=== PATIENT | male | born 1980 | race Caucasian/White ===

== ENCOUNTER → 2018-01-22 09:34 | Outpatient (CLI) | payer OTHER, SELFPAY ==
[2018-01-22 10:33] LABS: Hematocrit 48.8 % (41-53); Hemoglobin 17.1 g/dL (13.5-17.5); Mean Corpuscular Hemoglobin 29.8 PG (26-34); Mean Corpuscular Volume 85.2 fL (80-100); Platelet Count 220 X10^3/uL (150-400); Red Blood Cell Count 5.73 X10^6/uL (4.5-5.9); Red Cell Distribution Width 12.4 % (11.6-14.8); White Blood Cell Count 8.7 X10^3/uL (4.5-11.0)
[2018-01-22 10:53] LABS: Alanine Aminotransferase 48 IU/L (21-72); Albumin 4.8 g/dL (3.5-5.0); Albumin Globulin Ratio 1.5 (1.0-2.8); Alkaline Phosphatase 75 U/L (38-126); Aspartate Aminotransferase 25 IU/L (17-59); BUN Creatinine Ratio 14.5 (6-22); Bilirubin Total 2.1 mg/dL (0.2-1.3); Blood Urea Nitrogen 16 mg/dL (9-20); Calcium 9.7 mg/dL (8.4-10.2); Carbon Dioxide 30 mmol/L (22-32); Chloride 101 mmol/L (98-107); Cholesterol 179 mg/dL (140-199); Estimated Glomerular Filt Rate > 60.0 mL/min (>60); Globulin 3.3 g/dL (1.7-4.1); Glucose 113 mg/dL (70-100); HDL Cholesterol 41 mg/dL (40-60); HEMOLYSIS < 15 (0-50); LDL Cholesterol Calculated 117 mg/dL (<100); Potassium 3.9 mmol/L (3.4-5.1); Sodium 144 mmol/L (137-145); Total Protein 8.1 g/dL (6.3-8.2); Triglycerides 105 mg/dL (35-150)
[2018-01-22 11:07] LABS: Add Manual Diff / Slide Review YES
[2018-01-22 11:13] LABS: Neutrophils Absolute Manual 6264 /uL (3000-5900); Total Cells Counted 100
[2018-01-22 11:14] LABS: RBC Morphology Normal Morphology
[2018-01-22 11:25] LABS: Thyroid Stimulating Hormone 1.26 uIU/mL (0.47-4.68)
== END ==
PROVIDERS: PCP Family Medicine; Visit Provider Family Medicine
DX: F32.9 Major depressive disorder, single episode, unspecified (principal)
CPT/HCPCS: 36415; 80053; 80061; 84443; 85025

== ENCOUNTER → 2018-10-09 10:25 | Outpatient (CLI) | payer OTHER, SELFPAY ==
--- NOTE | 2018-10-09 10:46 | DI.CT.S_ITS ---
PROCEDURE: CT ABDOMEN PELVIS W CON INDICATIONS: Suspect Hernia TECHNIQUE: After the administration of oral and intravenous contrast, 5 mm thick sections acquired from the diaphragms to the symphysis. 5 mm thick coronal and sagittal reformats were performed. For radiation dose reduction, the following was used: automated exposure control, adjustment of mA and/or kV according to patient size. COMPARISON: [facility], , ABDOMEN COMPLETE, 10/19/2016, 1:59. FINDINGS: Image quality: Diagnostic. ABDOMEN: Lung bases: Lung bases are clear. Heart size is normal. Solid organs: Liver is normal in size and enhancement. Gallbladder is surgically absent. Biliary system is non-dilated. Pancreas enhances normally. Spleen is mildly enlarged at 13.5 cm in craniocaudal dimension. No focal splenic lesions are evident. No adrenal nodules. Kidneys are normal in size and enhancement, without hydronephrosis. Peritoneum and bowel: Periumbilical subcutaneous thickening is identified with a questionable peripherally enhancing fluid collection that measures up to approximately 1.7 x 1.1 cm (image 52, series 2). Mild adjacent subcutaneous edema is evident. No periumbilical hernia or other ventral hernias are identified. The stomach and duodenum are unremarkable. The small bowel loops are nondilated. The appendix is well-visualized and normal. The colon is grossly unremarkable. No free fluid, loculated fluid collection or free air is evident. Nodes and vessels: No retroperitoneal or mesenteric adenopathy. Aorta and inferior vena cava are normal in caliber. Mild common right iliac artery atherosclerosis is evident. Bones: No acute fractures or suspicious osseous lesions are evident. Mild degenerative changes of the lower lumbar spine are present. PELVIS: Genitourinary: Bladder wall thickness is normal. The prostate does not appear to be enlarged. Miscellaneous: No inguinal hernias or adenopathy. No free fluid or loculated fluid collection is evident. Bones: No suspicious bony lesions. No acute fracture or suspicious osseous lesion is present. There mild degenerative changes of the bilateral hips. IMPRESSION: 1. Small peripherally enhancing fluid collection within the left periumbilical region is of uncertain etiology. Clinical correlation to exclude a focal skin/subcutaneous infection is evident. 2. There is no periumbilical or ventral hernia evident. 3. No bowel obstruction. 4. Mild splenomegaly. 5. Mild right common iliac artery atherosclerotic changes is somewhat unusual for the patient's age. Dictated by: Eric Bell M.D. on 10/09/2018 at 10:42 Approved by: Eric Bell M.D. on 10/09/2018 at 10:46
== END ==
PROVIDERS: PCP Family Medicine; Visit Provider Physician Assistant
DX: R16.1 Splenomegaly, not elsewhere classified (principal)
CPT/HCPCS: 74177; Q9967

== ENCOUNTER → 2018-10-10 10:00 | Outpatient (CLI) | payer OTHER, SELFPAY ==
[2018-10-10 10:47] LABS: Add Manual Diff / Slide Review NO; Basophils Absolute Auto 0 /uL (0-100); Basophils Percent Auto 0.4 % (0-2); Eosinophils Absolute Auto 200 /uL (0-450); Eosinophils Percent Auto 2.5 % (2-4); Hematocrit 45.8 % (41-53); Hemoglobin 16.3 g/dL (13.5-17.5); Lymphocytes Absolute Auto 1800 /uL (1100-4500); Mean Corpuscular HGB Conc 35.7 % (30-36); Mean Corpuscular Hemoglobin 29.9 PG (26-34); Mean Corpuscular Volume 83.8 fL (80-100); Monocytes Absolute Auto 500 /uL (0-900); Monocytes Percent Auto 5.2 % (3-14); Neutrophils Absolute Auto 6600 /uL (1500-7000); Neutrophils Percent Auto 71.9 % (50-75); Platelet Count 203 X10^3/uL (150-400); Red Blood Cell Count 5.47 X10^6/uL (4.5-5.9); Red Cell Distribution Width 12.7 % (11.6-14.8); White Blood Cell Count 9.2 X10^3/uL (4.5-11.0)
[2018-10-10 11:15] LABS: Alanine Aminotransferase 39 IU/L (21-72); Albumin 4.7 g/dL (3.5-5.0); Albumin Globulin Ratio 1.6 (1.0-2.8); Alkaline Phosphatase 91 U/L (38-126); Aspartate Aminotransferase 19 IU/L (17-59); Bilirubin Total 1.9 mg/dL (0.2-1.3); Blood Urea Nitrogen 22 mg/dL (9-20); Calcium 10.2 mg/dL (8.4-10.2); Carbon Dioxide 30 mmol/L (22-32); Chloride 102 mmol/L (98-107); Estimated Glomerular Filt Rate > 60.0 mL/min (>60); Globulin 2.9 g/dL (1.7-4.1); Glucose 99 mg/dL (70-100); HEMOLYSIS < 15 (0-50); Lipase 80 U/L (23-300); Potassium 4.5 mmol/L (3.4-5.1); Sodium 143 mmol/L (137-145); Total Protein 7.6 g/dL (6.3-8.2)
== END ==
PROVIDERS: PCP Family Medicine; Visit Provider Physician Assistant
DX: R10.33 Periumbilical pain (principal)
CPT/HCPCS: 36415; 80053; 83690; 85025

== ENCOUNTER 2019-12-13 14:15 | Emergency (ER) | payer OTHER, SELFPAY ==
[2019-12-13 14:25] VITALS: BP 134/95; PULSE 89; RESP 16; TEMP 37.1; O2SAT 98; BMI 35.7
--- NOTE | 2019-12-13 14:44 | DI.CT.S_ITS ---
PROCEDURE: CT HEAD/BRAIN WO CON INDICATIONS: wakes with vertigo regularly, pins/needles all day TECHNIQUE: Noncontrast 4.5 mm thick angled axial sections acquired from the foramen magnum to the vertex, with coronal and sagittal reformats. For radiation dose reduction, the following was used: automated exposure control, adjustment of mA and/or kV according to patient size. COMPARISON: None. FINDINGS: Image quality: Excellent. CSF spaces: Basal cisterns are patent. No extra-axial fluid collections. Ventricles are normal in size and shape. Brain: No midline shift. No intracranial masses or hemorrhage. Bolanos-white matter interface is normal. Skull and face: Calvarium and visualized facial bones are intact, without suspicious lesions. Sinuses: Visualized sinuses and mastoids are clear. IMPRESSION: No acute intracranial findings. Dictated by: Magda Schaeffer M.D. on 12/13/2019 at 15:14 Approved by: Magda Schaeffer M.D. on 12/13/2019 at 15:16
--- NOTE | 2019-12-13 14:44 | DI.CT.S_ITS ---
PROCEDURE: CT ANGIO HEAD AND NECK INDICATIONS: wakes with vertigo regularly, pins/needles all day TECHNIQUE: Pre-contrast 4.5 mm thick sections acquired from the foramen magnum to the vertex. After the administration of intravenous contrast, 1 mm thick sections acquired from the aortic arch through the [place]. Post-contrast 4.5 mm thick sections then re-acquired from the foramen magnum to the vertex. 3-dimensional jwvbmgm-fizgfypcv-avcdlnfaeo (MIP) and/or volume rendering reformats were acquired of the central intracranial vasculature and neck separately. COMPARISON: None. FINDINGS: Image quality: Excellent. BRAIN: CSF spaces: Ventricles are normal in size and shape. Basal cisterns are patent. No extra-axial fluid collections. Brain: No midline shift. No intracranial bleeds or masses. Bolanos-white matter interface appears intact. Skull and face: Calvarium and facial bones appear intact, without suspicious lesions. Orbits appear normal. Sinuses: Sinuses and mastoids are clear. HEAD CT ANGIOGRAPHY: Anterior circulation: Intracranial internal carotid arteries are normal in size and flow. The flow within the paired anterior cerebral arteries is normal and symmetric. The flow within the middle cerebral arteries is normal and symmetric. The anterior communicating artery is seen. No aneurysms are seen. Posterior circulation: Visualized portions of the vertebral arteries demonstrate normal caliber, and join to form a normal appearing basilar artery. Flow within the posterior cerebral arteries is normal and symmetric. No aneurysms are seen. NECK CT ANGIOGRAPHY: Carotid system: The great vessels demonstrate a conventional anatomy as they arise from the aortic arch. The origins of the common carotid arteries appear patent. The common carotid arteries demonstrate normal caliber and courses. The bifurcation regions are both widely patent. The internal carotid arteries demonstrate normal calibers and courses. Posterior circulation: The origins of the vertebral arteries both appear widely patent. The more superior extracranial portions of both vertebral arteries also demonstrate normal courses and calibers. They join to form a normal appearing basilar artery. Soft tissues: Visualized neck soft tissues demonstrate no suspicious abnormalities. Bones: No suspicious bony lesions. Visualized cervical spine appears normally aligned. IMPRESSION: 1. No stenosis, occlusion, or aneurysm of the vasculature of the head and neck. Any quantitative measurements of stenosis were performed using NASCET criteria. Dictated by: Magda Schaeffer M.D. on 12/13/2019 at 15:32 Approved by: Magda Schaeffer M.D. on 12/13/2019 at 15:36
--- NOTE | 2019-12-13 14:46 | ED.NEUROSD ---
HPI - Neuro Symptoms/Deficit General Chief Complaint: Weakness Stated Complaint: left-sided arm numbness, fatigue, dizziness Time Seen by Provider: 12/13/19 14:23 Source: patient Mode of arrival: Wheelchair Limitations: no limitations History of Present Illness HPI Narrative: This is a 39-year-old male who comes to emergency emergency room with complaint of vertigo that occurs in the middle of the night typically or upon awakening in the middle of the night for several months patient states he also today woke up at about 430 in the morning with his left arm extended in front of him it felt like he had paresthesias or pins and needles. Patient also states that since then that feeling has not resolved he states he has sensation but it just feels different than the other arm. He denies headache, he denies new vision changes, no cough cold or congestion. No new chest pain or shortness of breath today. No GI or urinary symptoms. No loss of bowel or bladder control. No numbness or tingling in his other extremities. He has not had any other new neurologic changes. He did change from citalopram to Paxil for his anxiety and depression which he states is controlled but does cause problems. Also has a lot of anxiety related to his marriage but feels safe at home he states he has had his gallbladder removed, denies any other medical issues. No tobacco, rare alcohol, rare THC. On Anticoagulants: No Related Data Previous Rx's Medication Instructions Recorded paroxetine HCl 20 mg tablet 20 mg PO DAILY #90 tab 08/18/19 Allergies Allergy/AdvReac Type Severity Reaction Status Date / Time amoxicillin [AMOXICILLIN] Allergy Severe throat Verified 11/17/19 10:13 swelling Review of Systems Review of Systems ROS Unobtainable: All systems reviewed & are unremarkable except as noted in HPI and below Patient History Medical History Ankle pain (Chronic ~2004) Foot pain (Chronic ~2004) Surgical History Anesthesia (Resolved) History of cholecystectomy (Resolved ~2017) Social History Smoking Status: Never smoker Smoking Status: Never smoker alcohol intake frequency: 0-2 drinks per day Substance Use Type: does not use Exam Narrative Exam Narrative: GEN: well nourished, well appearing male, alert and oriented x 3, patient appears to be in mild distress. HEENT: Atraumatic, pupils are equal round reactive to light, extraocular movements are intact, nares are clear, TMs are clear with no fluid, there is no conjunctival pallor. Throat is clear without any exudates, erythema, tonsillar enlargement or uvular deviation, no dysarthria, no facial droop. HEART: Regular rate and rhythm without murmur, clicks, rubs. No carotid bruits, pulses are equal in upper and lower extremities LUNGS:Lungs clear to auscultation, no wheezes, rales, crackles, chest moves symmetrically ABD:bowel sounds normal, soft, non-tender, no guarding, rebound, rigidity, no masses noted, no hepatosplenomegaly :No CVA tenderness MSCL: Non-tender, no muscle atrophy, muscles strength 5/5 upper and lower extremities, full range of motion, normal gait NEURO:CN 2-12 intact, sensation normal, reflexes 2/4 upper and lower extremities. finger nose finger test normal, heel rodriguez test normal, romberg normal SKIN: no rash, no erythema or other skin changes. Initial Vital Signs Initial Vital Signs: Vital Signs Temperature 98.8 F 12/13/19 14:25 Pulse Rate 89 12/13/19 14:25 Respiratory Rate 16 12/13/19 14:25 Blood Pressure 134/95 H 12/13/19 14:25 Pulse Oximetry 98 12/13/19 14:25 Scores NIH Stroke Scale Level of Conciousness: Alert, keenly responsive Ask month/age: Answers both questions correctly. Open/close eyes, close hand: Performs both tasks correctly Best gaze horizontal: Normal Visual beckman: No visual loss Facial palsy: Normal symetrical movement Left arm drift: No drift for full 10 sec Right arm drift: No drift for full 10 sec Left leg drift: No drift for full 5 sec Right leg drift: No drift for full 5 sec Limb ataxia: Absent Sensory on face/arms/legs: Normal, no sensory loss Best language: No aphasia, normal Dysarthria: Normal Extinction or inattention: No abnormality Total NIH Stroke scale score: 0 Course Orders Ordered: ED Orders 12/13/19 14:44 CT angio head and neck Stat CT head/brain wo con Stat Urine Drug Screen, Rapid Stat 12/13/19 14:45 Basic Metabolic Panel Stat Complete Blood Count AUTO DIFF Stat Partial Thromboplastin Time Stat Prothrombin Time INR Stat Troponin & CK Cardiac Panel Stat Vital Signs Vital signs: Vital Signs - 8 hr 12/13/19 14:25 12/13/19 16:39 12/13/19 16:40 Temperature 98.8 F Pulse Rate 89 72 69 Respiratory Rate 16 Blood Pressure 134/95 H Pulse Oximetry 98 98 98 12/13/19 16:42 Temperature Pulse Rate 68 Respiratory Rate Blood Pressure 128/60 Pulse Oximetry 97 MDM - Neuro Symptoms/Deficit Lab Data Attestation: I reviewed the patient's lab results. Result diagrams: 12/13/19 14:45 12/13/19 14:45 Labs: Lab Results 12/13/19 12/13/19 12/13/19 Range/Units 14:45 14:45 14:45 WBC 9.0 (4.5-11.0) X10^3/uL RBC 5.91 H (4.5-5.9) X10^6/uL Hgb 17.6 H (13.5-17.5) g/dL Hct 49.6 (41-53) % MCV 83.8 (80-100) fL MCH 29.8 (26-34) PG MCHC 35.6 (30-36) % RDW 12.6 (11.6-14.8) % Plt Count 223 (150-400) X10^3/uL Neut % (Auto) 66.8 (50-75) % Lymph % (Auto) 24.5 L (25-40) % [place] % (Auto) 5.6 (3-14) % Eos % (Auto) 2.3 (2-4) % Baso % (Auto) 0.8 (0-2) % Neut # (Auto) 6000 (2448-2672) /uL Lymph # (Auto) 2200 (7534-4333) /uL [place] # (Auto) 500 (0-900) /uL Eos # (Auto) 200 (0-450) /uL Baso # (Auto) 100 (0-100) /uL PT 11.7 (10.1-12.7) SECONDS INR 1.0 (0.9-1.3) APTT 32 (26.4-36.2) SECONDS Sodium 139 (137-145) mmol/L Potassium 4.0 (3.4-5.1) mmol/L Chloride 102 (98-107) mmol/L Carbon Dioxide 34 H (22-32) mmol/L BUN 14 (9-20) mg/dL Creatinine 0.96 (0.66-1.25) mg/dL Estimated GFR > 60.0 (>60) mL/min BUN/Creatinine Ratio 14.6 (6-22) Glucose 90 (70-100) mg/dL Calcium 10.0 (8.4-10.2) mg/dL Total Creatine Kinase 68 (55-170) U/L CK-MB (CK-2) TNP CK-MB (CK-2) Rel Index TNP Troponin I < 0.012 (0.01-0.034) ng/mL Imaging Data CT scan - head: Radiologist's Impression: [address] [address] [address] Scan Report Signed Patient: Nacho Bronson LMR#: [id number] : 1980Acct:[id number] Age/Sex: 39 / MDate of Service: 12/13/19 Loc: ED Accession Number: [id number] Procedure: CT head/brain wo con Ordering Provider: Gena Sweet D.O. PROCEDURE: CT HEAD/BRAIN WO CON INDICATIONS: wakes with vertigo regularly, pins/needles all day TECHNIQUE: Noncontrast 4.5 mm thick angled axial sections acquired from the foramen magnum to the vertex, with coronal and sagittal reformats. For radiation dose reduction, the following was used: automated exposure control, adjustment of mA and/or kV according to patient size. COMPARISON: None. FINDINGS: Image quality: Excellent. CSF spaces: Basal cisterns are patent. No extra-axial fluid collections. Ventricles are normal in size and shape. Brain: No midline shift. No intracranial masses or hemorrhage. Bolanos-white matter interface is normal. Skull and face: Calvarium and visualized facial bones are intact, without suspicious lesions. Sinuses: Visualized sinuses and mastoids are clear. IMPRESSION: No acute intracranial findings. Dictated by: Magda Schaeffer M.D. on 12/13/2019 at 15:14 Approved by: Magda Schaeffer M.D. on 12/13/2019 at 15:16 CTA head and neck: Radiologist's Impression: [address] [address] [address] Scan Report Signed Patient: Nacho Bronson LMR#: [id number] : 1980Acct:[id number] Age/Sex: 39 / MDate of Service: 12/13/19 Loc: ED Accession Number: [id number] Procedure: CT angio head and neck Ordering Provider: Gena Sweet D.O. PROCEDURE: CT ANGIO HEAD AND NECK INDICATIONS: wakes with vertigo regularly, pins/needles all day TECHNIQUE: Pre-contrast 4.5 mm thick sections acquired from the foramen magnum to the vertex. After the administration of intravenous contrast, 1 mm thick sections acquired from the aortic arch through the [place]. Post-contrast 4.5 mm thick sections then re-acquired from the foramen magnum to the vertex. 3-dimensional cnkirlj-ucaeznngv-mjlypalrta (MIP) and/or volume rendering reformats were acquired of the central intracranial vasculature and neck separately. COMPARISON: None. FINDINGS: Image quality: Excellent. BRAIN: CSF spaces: Ventricles are normal in size and shape. Basal cisterns are patent. No extra-axial fluid collections. Brain: No midline shift. No intracranial bleeds or masses. Bolanos-white matter interface appears intact. Skull and face: Calvarium and facial bones appear intact, without suspicious lesions. Orbits appear normal. Sinuses: Sinuses and mastoids are clear. HEAD CT ANGIOGRAPHY: Anterior circulation: Intracranial internal carotid arteries are normal in size and flow. The flow within the paired anterior cerebral arteries is normal and symmetric. The flow within the middle cerebral arteries is normal and symmetric. The anterior communicating artery is seen. No aneurysms are seen. Posterior circulation: Visualized portions of the vertebral arteries demonstrate normal caliber, and join to form a normal appearing basilar artery. Flow within the posterior cerebral arteries is normal and symmetric. No aneurysms are seen. NECK CT ANGIOGRAPHY: Carotid system: The great vessels demonstrate a conventional anatomy as they arise from the aortic arch. The origins of the common carotid arteries appear patent. The common carotid arteries demonstrate normal caliber and courses. The bifurcation regions are both widely patent. The internal carotid arteries demonstrate normal calibers and courses. Posterior circulation: The origins of the vertebral arteries both appear widely patent. The more superior extracranial portions of both vertebral arteries also demonstrate normal courses and calibers. They join to form a normal appearing basilar artery. Soft tissues: Visualized neck soft tissues demonstrate no suspicious abnormalities. Bones: No suspicious bony lesions. Visualized cervical spine appears normally aligned. IMPRESSION: 1. No stenosis, occlusion, or aneurysm of the vasculature of the head and neck. Any quantitative measurements of stenosis were performed using NASCET criteria. Dictated by: Magda Schaeffer M.D. on 12/13/2019 at 15:32 Approved by: Magda Schaeffer M.D. on 12/13/2019 at 15:36 ECG Data Attestation: I personally reviewed and interpreted this ECG as follows: Prior ECG tracings: not available for review Interpretation: NSR, rate of 81, pr 152, qrs 78, qtc 406. NO ST changes appreciated. MDM Narrative Medical decision making narrative: Patient comes in with intermittent vertigo like symptoms particularly at night, this is been longstanding. Head CT and CT angio showed no acute changes. EKG shows no changes. Major abnormalities but describes his symptoms today. He woke up with his arm extended this morning and states that it has been numb and tingly throughout the day although he has had full movement. NIH is 0 with no other neurologic changes on physical exam. We discussed patient's differential including possibility of 2 separate issues as he has had longstanding vertigo like symptoms in the middle night on with his tingling in his upper extremity which started today. Stroke Core Measures Exclusion Criteria TPA in CVA: Symptom Onset >3 or 4.5 Hours Discharge Plan Departure Patient Disposition: Home Clinical Impression: Arm paresthesia, left Discharge Date/Time: 12/13/19 17:14 Activity Restrictions/Additional Instructions: Follow up with your primary care physician Dr. Mullen in the next week for recheck. You may continue home medications as prescribed. Return to ER for,severe headaches, sudden vision changes, difficulty with speech, loss of sensation or difficulty with movement of extremities, loss of bowel or bladder control, new chest pain, shortness of breath or other new or concerning symptoms. Prescriptions: No Action paroxetine HCl [Paxil] 20 mg tablet 20 mg PO DAILY Qty: 90 RF: 3 Referrals: Oziel Mullen MD [Primary Care Provider] -
[2019-12-13 14:56] LABS: Add Manual Diff / Slide Review NO; Basophils Absolute Auto 100 /uL (0-100); Basophils Percent Auto 0.8 % (0-2); Eosinophils Absolute Auto 200 /uL (0-450); Eosinophils Percent Auto 2.3 % (2-4); Hematocrit 49.6 % (41-53); Hemoglobin 17.6 g/dL (13.5-17.5); Lymphocytes Absolute Auto 2200 /uL (1100-4500); Lymphocytes Percent Auto 24.5 % (25-40); Mean Corpuscular HGB Conc 35.6 % (30-36); Mean Corpuscular Hemoglobin 29.8 PG (26-34); Mean Corpuscular Volume 83.8 fL (80-100); Monocytes Absolute Auto 500 /uL (0-900); Monocytes Percent Auto 5.6 % (3-14); Neutrophils Absolute Auto 6000 /uL (1500-7000); Neutrophils Percent Auto 66.8 % (50-75); Platelet Count 223 X10^3/uL (150-400); Red Blood Cell Count 5.91 X10^6/uL (4.5-5.9); Red Cell Distribution Width 12.6 % (11.6-14.8)
[2019-12-13 15:05] LABS: Prothrombin Time 11.7 SECONDS (10.1-12.7)
[2019-12-13 15:07] LABS: PTT Partial Thromboplastin Tim 32 SECONDS (26.4-36.2)
[2019-12-13 15:09] LABS: BUN Creatinine Ratio 14.6 (6-22); Blood Urea Nitrogen 14 mg/dL (9-20); Carbon Dioxide 34 mmol/L (22-32); Chloride 102 mmol/L (98-107); Creatine Kinase 68 U/L (55-170); Estimated Glomerular Filt Rate > 60.0 mL/min (>60); Glucose 90 mg/dL (70-100); HEMOLYSIS < 15 (0-50); Sodium 139 mmol/L (137-145)
[2019-12-13 15:21] LABS: Troponin I < 0.012 ng/mL (0.01-0.034)
[2019-12-13 16:39] VITALS: PULSE 72; O2SAT 98
[2019-12-13 16:40] VITALS: PULSE 69; O2SAT 98
[2019-12-13 16:42] VITALS: BP 128/60; PULSE 68; O2SAT 97
== END 2019-12-13 17:14 | disposition home or self-care (01) ==
PROVIDERS: Emergency Provider Emergency Medicine; PCP Family Medicine
DX: R20.2 Paresthesia of skin (principal); R42 Dizziness and giddiness
CPT/HCPCS: 36415; 70450; 70496; 70498; 80048; 82550; 84484; 85025; 85610; 85730; 93005; 93010; 99283; 99284; Q9967

== ENCOUNTER → 2019-12-21 11:34 | Outpatient (CLI) | payer OTHER, SELFPAY ==
[2019-12-21 14:49] LABS: TSH w/ Reflex to FT4 2.65 uIU/mL (0.47-4.68)
[2019-12-21 15:07] LABS: Vitamin B12 Reflex MMA if <400 773 pg/mL (239-931)
== END ==
PROVIDERS: PCP Family Medicine; Referring Provider Family Medicine; Visit Provider Family Medicine
DX: R20.2 Paresthesia of skin (principal)
CPT/HCPCS: 36415; 82607; 84443

== ENCOUNTER → 2020-01-04 08:43 | Outpatient (CLI) | payer OTHER, SELFPAY ==
[2020-01-04 11:13] LABS: COVID19 -Nasal RAPID Negative (Negative)
== END ==
PROVIDERS: PCP Family Medicine; Visit Provider Physician Assistant
DX: Z11.59 Encounter for screening for other viral diseases (principal)
CPT/HCPCS: 87635

== ENCOUNTER → 2020-01-04 09:46 | Outpatient (CLI) | payer OTHER, SELFPAY ==
--- NOTE | 2020-01-22 15:51 | P.HOLT.S_ITS ---
Senior Telecommunications Technician Report Referral & Results Date Patient Seen: 01/04/20 Requesting provider: Michael Skinner Indication: Syncope Duration of monitoring (days): 3 Diary information: There were 3 patient triggered events, all associated with sinus rhythm only. There were no patient diary entries Data: Minimum heart rate identified was 51 beats per minute at 02:42 on 01/07/2020 Maximum heart rate was 163 beats per minute at 09:11 on 01/06/2020 Less than 1% of identified beats were supraventricular ectopic in origin No ventricular ectopic beats were identified on this study No pauses were identified Impression: Normal 3 day ekg monitor tech.
== END ==
PROVIDERS: PCP Family Medicine; Referring Provider Family Medicine; Visit Provider Family Medicine
DX: R55 Syncope and collapse (principal)
CPT/HCPCS: 0296T; 0298T

== ENCOUNTER → 2020-01-06 07:49 | Outpatient (CLI) | payer OTHER, SELFPAY ==
--- NOTE | 2020-01-06 09:23 | PM.TREADMILL ---
Cardiac Stress Test Report Referral & Results Date Patient Seen: 01/06/20 Time Patient Seen: 09:00 Requesting provider: Michael Skinner Indication: Syncope Rest ECG: Normal sinus rhythm Procedure Note: Today following both written and verbal informed consent, the patient was exercised according to a standard [facility] protocol. The patient exercised for a total of 9 minutes achieving a maximum heart rate of 166. Patient's maximum systolic blood pressure was 160. This was an estimated 10.1 METs. Normal hemodynamic response to exercise. No change in rhythm. No ST changes. Significant impairment of exercise tolerance (FA I +25% on active scale). No signs or symptoms of angina. Presenting presyncope not reproduced on exercise. Impression: low to intermediate probability for ischemia. May be simply cardiac deconditioning. Consider graded exercise program with further ischemia workup reserved for failure to improve with conservative management. Please note: Actual ECG tracings can be found in the PACS system.
== END ==
LOC: DI 07:50
PROVIDERS: PCP Family Medicine; Referring Provider Family Medicine; Visit Provider Family Medicine
DX: R55 Syncope and collapse (principal)
CPT/HCPCS: 93016; 93017; 93018

== ENCOUNTER → 2020-03-23 11:48 | Outpatient (CLI) | payer OTHER, SELFPAY ==
[2020-03-23 13:04] LABS: COVID19 -Nasal RAPID Negative (Negative)
== END ==
PROVIDERS: PCP Family Medicine; Visit Provider Family Medicine Sleep Medicine
DX: Z20.822 Contact with and (suspected) exposure to COVID-19 (principal)
CPT/HCPCS: 87635; C9803

== ENCOUNTER → 2020-04-22 08:59 | Outpatient (CLI) | payer OTHER, SELFPAY ==
[2020-04-22 10:08] LABS: COVID19 -Nasal RAPID Negative (Negative)
== END ==
PROVIDERS: PCP Family Medicine; Visit Provider Family Medicine Sleep Medicine
DX: Z20.822 Contact with and (suspected) exposure to COVID-19 (principal); G47.33 Obstructive sleep apnea (adult) (pediatric)
CPT/HCPCS: 87635; 95811

== ENCOUNTER 2020-05-08 09:11 | Emergency (ER) | payer OTHER, SELFPAY ==
[2020-05-08 09:16] VITALS: BP 155/81; PULSE 102; O2SAT 95
[2020-05-08 09:20] VITALS: BP 155/81; PULSE 96; RESP 18; TEMP 36.7; O2SAT 97; BMI 37.3
--- NOTE | 2020-05-08 09:26 | DI.RAD.S_ITS ---
PROCEDURE: XR CHEST 1V INDICATIONS: chest pain TECHNIQUE: One view of the chest was acquired. COMPARISON: [facility], CT, CT ANGIO HEAD AND NECK, 12/13/2019, 14:57. FINDINGS: Surgical changes and devices: None. Lungs and pleura: Lungs are clear. No pleural effusions or pneumothorax. Mediastinum: Mediastinal contours appear normal. Heart size is normal. Bones and chest wall: No suspicious bony lesions. Overlying soft tissues appear unremarkable. IMPRESSION: No acute cardiopulmonary abnormality. Dictated by: Hernán Yun M.D. on 05/08/2020 at 9:21 Approved by: Hernán Yun M.D. on 05/08/2020 at 9:22
[2020-05-08 09:30] VITALS: PULSE 88; RESP 22; O2SAT 95
[2020-05-08 09:35] LABS: Prothrombin Time 11.1 SECONDS (10.1-12.7)
[2020-05-08 09:37] LABS: Add Manual Diff / Slide Review NO; Basophils Absolute Auto 100 /uL (0-100); Basophils Percent Auto 0.8 % (0-2); Eosinophils Absolute Auto 300 /uL (0-450); Eosinophils Percent Auto 2.7 % (2-4); Hematocrit 49.8 % (41-53); Hemoglobin 17.5 g/dL (13.5-17.5); Lymphocytes Absolute Auto 2300 /uL (1100-4500); Lymphocytes Percent Auto 21.6 % (25-40); Mean Corpuscular HGB Conc 35.2 % (30-36); Mean Corpuscular Volume 85.1 fL (80-100); Monocytes Absolute Auto 500 /uL (0-900); Monocytes Percent Auto 5.1 % (3-14); Neutrophils Absolute Auto 7400 /uL (1500-7000); Neutrophils Percent Auto 69.8 % (50-75); Platelet Count 243 X10^3/uL (150-400); Red Blood Cell Count 5.86 X10^6/uL (4.5-5.9); Red Cell Distribution Width 12.9 % (11.6-14.8); White Blood Cell Count 10.6 X10^3/uL (4.5-11.0)
[2020-05-08 09:38] LABS: PTT Partial Thromboplastin Tim 31 SECONDS (26.4-36.2)
[2020-05-08 09:39] LABS: Alanine Aminotransferase 62 IU/L (<50); Albumin Globulin Ratio 1.4 (1.0-2.8); Alkaline Phosphatase 111 U/L (38-126); Aspartate Aminotransferase 30 IU/L (17-59); BUN Creatinine Ratio 20.6 (6-22); Bilirubin Total 0.9 mg/dL (0.2-1.3); Blood Urea Nitrogen 22 mg/dL (9-20); Calcium 10.2 mg/dL (8.4-10.2); Carbon Dioxide 26 mmol/L (22-32); Chloride 103 mmol/L (98-107); Creatine Kinase 43 U/L (55-170); Estimated Glomerular Filt Rate > 60.0 mL/min (>60); Globulin 3.5 g/dL (1.7-4.1); Glucose 147 mg/dL (70-100); HEMOLYSIS 23 (0-50); Lipase 135 U/L (23-300); Potassium 4.3 mmol/L (3.4-5.1); Sodium 141 mmol/L (137-145); Total Protein 8.5 g/dL (6.3-8.2)
--- NOTE | 2020-05-08 09:43 | ED.SYNCOPE ---
HPI - Syncope General Chief Complaint: Syncope Stated Complaint: passed out in shower Time Seen by Provider: 05/08/20 09:16 Source: patient Mode of arrival: Ambulatory Limitations: no limitations History of Present Illness HPI narrative: Patient is a 40-year-old male with history of dizziness and syncope presenting today after syncopal episode in the shower. He says that he has been worked up with his primary care provider at looks as though he had a Holter monitor in January, head CT and CT angio in November we have he had a previous syncopal episode. He says that he feels dizzy off and on. Initially treated for benign paroxysmal positional vertigo with the Chari maneuver. He does not feel dizzy all the time but he has occasionally. Today when he passed out in the shower he had no warning sign he fully briefly fell to the floor significant other found him immediately. He has no weakness numbness or tingling he does have a slight bruise on his right cheek. He continues to have mild headache. No nausea vomiting no visual changes. He occasionally hears a whooshing sound in his ears. MD complaint: collapsed Prodromal symptoms: none Witnessed: no Related Data Previous Rx's Medication Instructions Recorded meclizine 12.5 mg tablet 12.5 mg PO TID PRN #30 tab 12/21/19 escitalopram oxalate 20 mg tablet 20 mg PO DAILY #60 tab 03/10/20 eszopiclone 2 mg tablet 2 mg PO BEDTIME #1 tab 04/01/20 Allergies Allergy/AdvReac Type Severity Reaction Status Date / Time amoxicillin [AMOXICILLIN] Allergy Severe throat Verified 05/05/20 16:02 swelling Review of Systems Review of Systems ROS Unobtainable: All systems reviewed & are unremarkable except as noted in HPI and below Constitutional Constitutional: Denies chills, Denies fever(s), Reports headache(s), Denies lethargy and Denies weakness Eyes Eyes: Denies loss of vision ENT Ears, Nose, Mouth, and Throat: Denies vertigo and Reports headache(s) Cardiovascular Cardiovascular: Reports as per HPI, Reports syncope, Denies edema, Denies irregular heart rhythm, Denies leg edema and Denies lightheadedness Musculoskeletal Musculoskeletal: Denies back pain, Denies myalgias and Denies numbness Integumentary/Breasts Skin/Breast: Denies pruritus, Denies erythema, Denies rash and Denies wounds Neurologic Neurologic: Reports as per HPI, Denies burning sensations, Denies confusion, Denies vertigo, Reports syncope, Reports headache(s), Denies loss of vision, Denies memory loss, Denies numbness and Denies weakness Psychiatric Psychiatric: Denies confusion and Denies memory loss Patient History Medical History Ankle pain (~2004) Excessive daytime sleepiness Foot pain (~2004) Insomnia, psychophysiological Obesity (BMI 30-39.9) Obstructive sleep apnea, adult Snoring Vertigo Surgical History Anesthesia History of cholecystectomy (~2017) Family History Mother Loud snoring Depression Anxiety Family/Other Loud snoring Depression Anxiety Social History Smoking Status: Never smoker Smoking Status: Never smoker alcohol intake frequency: 0-2 drinks per day Substance Use Type: does not use Exam Initial Vital Signs Initial Vital Signs: Vital Signs Pulse Rate 102 H 05/08/20 09:16 Blood Pressure 155/81 H 05/08/20 09:16 Pulse Oximetry 95 05/08/20 09:16 GENERAL: Well-appearing, well-nourished and in no acute distress. HEENT: Head atraumatic,EOMI, pupils reactive, face symmetric, moist mucous membranes CARDIOVASCULAR: Regular rate and rhythm without murmurs, rubs or gallops. RESPIRATORY: Breath sounds equal bilaterally, no wheezes rales or rhonchi. ABDOMEN: Soft, nontender. Normoactive bowel sounds all 4 quadrants. No guarding or rebound. EXTREMITIES: Normal range of motion, no clubbing or edema. Neurovascularly intact NEUROLOGICAL: Alert and oriented x4.Normal gait and speech. Cranial nerves II through XII grossly intact. Good [id number], good [id number], strength equal bilaterally, no dysarthria or aphasia, sensation in tact to soft touch bilaterally, no visual changes, no facial droop SKIN: Warm, dry, no laceration, no petechiae, no rashes or lesions. Scores NIH Stroke Scale Level of Conciousness: Alert, keenly responsive Ask month/age: Answers both questions correctly. Open/close eyes, close hand: Performs both tasks correctly Best gaze horizontal: Normal Visual beckman: No visual loss Facial palsy: Normal symetrical movement Left arm drift: No drift for full 10 sec Right arm drift: No drift for full 10 sec Left leg drift: No drift for full 5 sec Right leg drift: No drift for full 5 sec Limb ataxia: Absent Sensory on face/arms/legs: Normal, no sensory loss Best language: No aphasia, normal Dysarthria: Normal Extinction or inattention: No abnormality Total NIH Stroke scale score: 0 Course Orders Ordered: ED Orders 05/08/20 09:20 Complete Blood Count AUTO DIFF Stat Comprehensive Metabolic Panel Stat D Dimer Stat Lipase Stat Partial Thromboplastin Time Stat Prothrombin Time INR Stat Troponin & CK Cardiac Panel Stat 05/08/20 09:26 XR chest 1V Stat EKG-12 Lead Stat 05/08/20 09:43 CT head/brain wo con Stat Vital Signs Vital signs: Vital Signs - 8 hr 05/08/20 09:16 05/08/20 09:20 05/08/20 09:30 Temperature 98.0 F Pulse Rate 102 H 96 H 88 Respiratory Rate 18 22 Blood Pressure 155/81 H 155/81 H Pulse Oximetry 95 97 95 05/08/20 10:00 05/08/20 10:30 05/08/20 10:47 Temperature Pulse Rate 80 77 84 Respiratory Rate 19 18 16 Blood Pressure 148/78 H Pulse Oximetry 92 94 97 MDM - Syncope Lab Data Attestation: I reviewed the patient's lab results. Result diagrams: 05/08/20 09:20 05/08/20 09:20 Labs: Lab Results 05/08/20 05/08/20 05/08/20 Range/Units 09:20 09:20 09:20 WBC 10.6 (4.5-11.0) X10^3/uL RBC 5.86 (4.5-5.9) X10^6/uL Hgb 17.5 (13.5-17.5) g/dL Hct 49.8 (41-53) % MCV 85.1 (80-100) fL MCH 30.0 (26-34) PG MCHC 35.2 (30-36) % RDW 12.9 (11.6-14.8) % Plt Count 243 (150-400) X10^3/uL Neut % (Auto) 69.8 (50-75) % Lymph % (Auto) 21.6 L (25-40) % Camp % (Auto) 5.1 (3-14) % Eos % (Auto) 2.7 (2-4) % Baso % (Auto) 0.8 (0-2) % Neut # (Auto) 7400 H (6863-6691) /uL Lymph # (Auto) 2300 (3397-1195) /uL [place] # (Auto) 500 (0-900) /uL Eos # (Auto) 300 (0-450) /uL Baso # (Auto) 100 (0-100) /uL PT 11.1 (10.1-12.7) SECONDS INR 1.0 (0.9-1.3) APTT 31 (26.4-36.2) SECONDS D-Dimer (<230) ng/mL Sodium 141 (137-145) mmol/L Potassium 4.3 (3.4-5.1) mmol/L Chloride 103 (98-107) mmol/L Carbon Dioxide 26 (22-32) mmol/L BUN 22 H (9-20) mg/dL Creatinine 1.07 (0.66-1.25) mg/dL Estimated GFR > 60.0 (>60) mL/min BUN/Creatinine Ratio 20.6 (6-22) Glucose 147 H (70-100) mg/dL Calcium 10.2 (8.4-10.2) mg/dL Total Bilirubin 0.9 (0.2-1.3) mg/dL AST 30 (17-59) IU/L ALT 62 H (<50) IU/L Alkaline Phosphatase 111 (38-126) U/L Total Creatine Kinase 43 L (55-170) U/L CK-MB (CK-2) TNP CK-MB (CK-2) Rel Index TNP Troponin I < 0.012 (0.01-0.034) ng/mL Total Protein 8.5 H (6.3-8.2) g/dL Albumin 5.0 (3.5-5.0) g/dL Globulin 3.5 (1.7-4.1) g/dL Albumin/Globulin Ratio 1.4 (1.0-2.8) Lipase 135 (23-300) U/L 05/08/20 Range/Units 09:20 WBC (4.5-11.0) X10^3/uL RBC (4.5-5.9) X10^6/uL Hgb (13.5-17.5) g/dL Hct (41-53) % MCV (80-100) fL MCH (26-34) PG MCHC (30-36) % RDW (11.6-14.8) % Plt Count (150-400) X10^3/uL Neut % (Auto) (50-75) % Lymph % (Auto) (25-40) % [place] % (Auto) (3-14) % Eos % (Auto) (2-4) % Baso % (Auto) (0-2) % Neut # (Auto) (1605-5690) /uL Lymph # (Auto) (3594-5875) /uL [place] # (Auto) (0-900) /uL Eos # (Auto) (0-450) /uL Baso # (Auto) (0-100) /uL PT (10.1-12.7) SECONDS INR (0.9-1.3) APTT (26.4-36.2) SECONDS D-Dimer < 200 (<230) ng/mL Sodium (137-145) mmol/L Potassium (3.4-5.1) mmol/L Chloride (98-107) mmol/L Carbon Dioxide (22-32) mmol/L BUN (9-20) mg/dL Creatinine (0.66-1.25) mg/dL Estimated GFR (>60) mL/min BUN/Creatinine Ratio (6-22) Glucose (70-100) mg/dL Calcium (8.4-10.2) mg/dL Total Bilirubin (0.2-1.3) mg/dL AST (17-59) IU/L ALT (<50) IU/L Alkaline Phosphatase (38-126) U/L Total Creatine Kinase (55-170) U/L CK-MB (CK-2) CK-MB (CK-2) Rel Index Troponin I (0.01-0.034) ng/mL Total Protein (6.3-8.2) g/dL Albumin (3.5-5.0) g/dL Globulin (1.7-4.1) g/dL Albumin/Globulin Ratio (1.0-2.8) Lipase (23-300) U/L Imaging Data CT scan - head: Radiologist's Impression: PROCEDURE: CT HEAD/BRAIN WO CON INDICATIONS: syncope with headache TECHNIQUE: Noncontrast 4.5 mm thick angled axial sections acquired from the foramen magnum to the vertex, with coronal and sagittal reformats. For radiation dose reduction, the following was used: automated exposure control, adjustment of mA and/or kV according to patient size. COMPARISON: [facility], CT, CT HEAD/BRAIN WO CON, 12/13/2019, 14:57. FINDINGS: Image quality: Excellent. CSF spaces: Basal cisterns are patent. No extra-axial fluid collections. Ventricles are normal in size and shape. Brain: No midline shift. No intracranial masses or hemorrhage. Bolanos-white matter interface is normal. Skull and face: Calvarium and visualized facial bones are intact, without suspicious lesions. Sinuses: Visualized sinuses and mastoids are clear. IMPRESSION: No acute intracranial abnormality. Dictated by: Hernán Yun M.D. on 05/08/2020 at 9:18 Chest x-ray: Radiologist's Impression: PROCEDURE: XR CHEST 1V INDICATIONS: chest pain TECHNIQUE: One view of the chest was acquired. COMPARISON: [facility], CT, CT ANGIO HEAD AND NECK, 12/13/2019, 14:57. FINDINGS: Surgical changes and devices: None. Lungs and pleura: Lungs are clear. No pleural effusions or pneumothorax. Mediastinum: Mediastinal contours appear normal. Heart size is normal. Bones and chest wall: No suspicious bony lesions. Overlying soft tissues appear unremarkable. IMPRESSION: No acute cardiopulmonary abnormality. Dictated by: Hernán Yun M.D. on 05/08/2020 at 9:21 ECG Data Attestation: I personally reviewed and interpreted this ECG as follows: Prior ECG tracings: available for review Interpretation: Normal sinus rhythm rate 80 p.r. interval 162 QRS 82 QTC [address] changes MDM Narrative Medical decision making narrative: Patient has had almost complete outpatient workup including CT angio his head and neck in November echocardiogram, Holter monitor. At this time it sounds as though he has dizzy episodes lasting a minute or less no neurologic deficits. Today he had a syncopal episode without warning she is concerning. He has a consultation with Neurology and couple of weeks. D-dimer is negative likely to be. At this time I do not think [place] repeating CT angio. Discussed all results with him and warning signs and when to return to ED. Discharge Plan Departure Patient Disposition: Home Clinical Impression: Syncope Qualifiers: Syncope type: unspecified Qualified Code(s): R55 - Syncope and collapse Instructions: DI for Syncope in Adults (Fainting) Activity Restrictions/Additional Instructions: *You have been diagnosed with dizziness *What to do: Recommended follow-up with Neurology as scheduled. At this time blood work and CT scan are reassuring. Recommend increasing fluid intake eating frequent meals *Continue to take medications as directed *Follow up with your primary care provider in 2-3 days *Return to ER if you should have persistent dizziness, recurrent passing out or any new, worsening or concerning symptoms Prescriptions: No Action meclizine 12.5 mg tablet 12.5 mg PO TID PRN (Reason: dizziness) Qty: 30 RF: 0 escitalopram oxalate [Lexapro] 20 mg tablet 20 mg PO DAILY Qty: 60 RF: 0 eszopiclone 2 mg tablet 2 mg PO BEDTIME Qty: 1 RF: 0 Referrals: Michael Skinner MD [Primary Care Provider] - Stand Alone Forms: Work Release Note
[2020-05-08 09:51] LABS: Troponin I < 0.012 ng/mL (0.01-0.034)
[2020-05-08 09:58] LABS: D Dimer < 200 ng/mL (<230)
[2020-05-08 10:00] VITALS: PULSE 80; RESP 19; O2SAT 92
[2020-05-08 10:30] VITALS: PULSE 77; RESP 18; O2SAT 94
[2020-05-08 10:47] VITALS: BP 148/78; PULSE 84; RESP 16; O2SAT 97
== END 2020-05-08 10:48 | disposition home or self-care (01) ==
PROVIDERS: Emergency Provider Emergency Medicine; PCP Family Medicine
DX: R55 Syncope and collapse (principal); R42 Dizziness and giddiness; R07.9 Chest pain, unspecified
CPT/HCPCS: 36415; 70450; 71045; 80053; 82550; 83690; 84484; 85025; 85379; 85610; 85730; 93005; 93010; 99284

== ENCOUNTER → 2020-08-08 11:35 | Outpatient (CLI) | payer OTHER, SELFPAY ==
[2020-08-08 11:58] LABS: Bacteria Urine None Seen; RBC Urine None Seen (0-5/HPF)
[2020-08-08 12:55] LABS: Appearance Urine UA CLEAR; Bilirubin Urine UA NEGATIVE (NEGATIVE); Color Urine UA YELLOW; Glucose Urine UA NEGATIVE (Negative); Ketones Urine UA NEGATIVE (NEGATIVE); Leukocyte Esterase Urine UA NEGATIVE (NEGATIVE); Nitrite Urine UA NEGATIVE (Negative); Occult Blood Urine UA NEGATIVE (Negative); Protein Urine UA NEGATIVE (Negative); Specific Gravity Urine UA 1.025 (1.000-1.035); pH Urine UA 5.5 (4.5-8.0)
[2020-08-08 13:02] LABS: Add Manual Diff / Slide Review NO; Basophils Absolute Auto 0 /uL (0-100); Basophils Percent Auto 0.3 % (0-2); Eosinophils Absolute Auto 200 /uL (0-450); Eosinophils Percent Auto 1.8 % (2-4); Hematocrit 47.5 % (41-53); Hemoglobin 16.7 g/dL (13.5-17.5); Lymphocytes Absolute Auto 2200 /uL (1100-4500); Lymphocytes Percent Auto 21.9 % (25-40); Mean Corpuscular HGB Conc 35.2 % (30-36); Mean Corpuscular Hemoglobin 29.5 PG (26-34); Monocytes Absolute Auto 600 /uL (0-900); Monocytes Percent Auto 5.9 % (3-14); Neutrophils Absolute Auto 6900 /uL (1500-7000); Neutrophils Percent Auto 70.1 % (50-75); Platelet Count 215 X10^3/uL (150-400); Red Blood Cell Count 5.65 X10^6/uL (4.5-5.9); Red Cell Distribution Width 12.8 % (11.6-14.8); White Blood Cell Count 9.9 X10^3/uL (4.5-11.0)
[2020-08-08 13:07] LABS: Alanine Aminotransferase 62 IU/L (<50); Albumin 4.7 g/dL (3.5-5.0); Albumin Globulin Ratio 1.4 (1.0-2.8); Alkaline Phosphatase 86 U/L (38-126); Aspartate Aminotransferase 29 IU/L (17-59); BUN Creatinine Ratio 15.3 (6-22); Blood Urea Nitrogen 17 mg/dL (9-20); Calcium 9.8 mg/dL (8.4-10.2); Carbon Dioxide 30 mmol/L (22-32); Chloride 101 mmol/L (98-107); Estimated Glomerular Filt Rate > 60.0 mL/min (>60); Globulin 3.3 g/dL (1.7-4.1); Glucose 106 mg/dL (70-100); HEMOLYSIS < 15 (0-50); Potassium 4.2 mmol/L (3.4-5.1); Sodium 140 mmol/L (137-145)
[2020-08-08 13:15] LABS: Culture Indicated Urine Cult Not Indicated; WBC Urine 0-1/HPF (0-5/HPF)
== END ==
PROVIDERS: PCP Family Medicine; Referring Provider Physician Assistant; Visit Provider Physician Assistant
DX: D23.9 Other benign neoplasm of skin, unspecified (principal)
CPT/HCPCS: 36415; 80053; 81001; 81405; 85025

== ENCOUNTER 2020-09-16 15:00 | Emergency (ER) | payer OTHER, SELFPAY ==
[2020-09-16 15:27] VITALS: BP 150/99; PULSE 96; RESP 16; TEMP 36.6; O2SAT 97; BMI 37.3
[2020-09-16 15:46] LABS: Add Manual Diff / Slide Review NO; Basophils Absolute Auto 100 /uL (0-100); Basophils Percent Auto 0.8 % (0-2); Eosinophils Absolute Auto 100 /uL (0-450); Eosinophils Percent Auto 1.4 % (2-4); Hematocrit 47.6 % (41-53); Hemoglobin 16.4 g/dL (13.5-17.5); Lymphocytes Absolute Auto 2300 /uL (1100-4500); Lymphocytes Percent Auto 21.8 % (25-40); Mean Corpuscular HGB Conc 34.4 % (30-36); Mean Corpuscular Hemoglobin 29.1 PG (26-34); Mean Corpuscular Volume 84.5 fL (80-100); Monocytes Absolute Auto 500 /uL (0-900); Monocytes Percent Auto 5.1 % (3-14); Neutrophils Absolute Auto 7400 /uL (1500-7000); Neutrophils Percent Auto 70.9 % (50-75); Platelet Count 226 X10^3/uL (150-400); Red Blood Cell Count 5.64 X10^6/uL (4.5-5.9); Red Cell Distribution Width 12.9 % (11.6-14.8); White Blood Cell Count 10.4 X10^3/uL (4.5-11.0)
[2020-09-16 15:58] LABS: Acetaminophen < 10 ug/mL (10-30); Alanine Aminotransferase 46 IU/L (<50); Albumin 4.8 g/dL (3.5-5.0); Albumin Globulin Ratio 1.4 (1.0-2.8); Alkaline Phosphatase 79 U/L (38-126); Aspartate Aminotransferase 32 IU/L (17-59); Blood Urea Nitrogen 16 mg/dL (9-20); Calcium 9.9 mg/dL (8.4-10.2); Carbon Dioxide 28 mmol/L (22-32); Chloride 105 mmol/L (98-107); Estimated Glomerular Filt Rate > 60.0 mL/min (>60); Ethanol (ETOH) < 10 mg/dL; Globulin 3.4 g/dL (1.7-4.1); Glucose 114 mg/dL (70-100); HEMOLYSIS < 15 (0-50); Potassium 3.9 mmol/L (3.4-5.1); Salicylate < 1.0 mg/dL (<20); Sodium 141 mmol/L (137-145); Total Protein 8.2 g/dL (6.3-8.2)
[2020-09-16 16:03] LABS: COVID19 -Nasal RAPID Negative (Negative)
[2020-09-16 16:46] LABS: Free T4, Direct Thyroxine 1.22 ng/dL (0.78-2.19)
--- NOTE | 2020-09-16 17:29 | ED.PSYCH ---
HPI - Psych General Chief Complaint: Psychiatric Symptoms Stated Complaint: Psyche visit- suicidal thoughts Time Seen by Provider: 09/16/20 15:16 Source: patient Mode of arrival: Ambulatory History of Present Illness HPI Narrative: 40-year-old male nonsmoker with history of depression presents with a chief complaint of significant depressive episode and suicidal thoughts. He had considered going to the [facility] past bridge. He has never made any attempt at hurting himself. He has multiple reasons for his severe depression but most recently has to do with trouble with his , some infidelity and recurrent interactions with those persons at his place of work. Patient lives at home with his and has family staying with him currently. He is under the care of a therapist to sounds to be quite helpful for him. He denies any alcohol or street drugs. Related Data Previous Rx's Medication Instructions Recorded meclizine 12.5 mg tablet 12.5 mg PO TID PRN #30 tab 12/21/19 bupropion HCl 100 mg tablet 100 mg PO BID #100 tab 06/09/20 sertraline 100 mg tablet (Zoloft) 150 mg PO DAILY #100 tab 06/09/20 Allergies Allergy/AdvReac Type Severity Reaction Status Date / Time amoxicillin [AMOXICILLIN] Allergy Severe throat Verified 09/16/20 15:34 swelling Review of Systems Review of Systems Narrative: GENERAL: Denies chills, fatigue, malaise, fever, sweats. HEENT: Denies sinus pain, ear pain, sore throat, difficulty swallowing, dizziness. RESPIRATORY: Denies dyspnea, cough, wheezing, hemoptysis, sputum. CARDIOVASCULAR: Denies chest pain, palpitations, orthopnea, edema, GASTROINTESTINAL: Denies nausea, vomiting, abdominal pain, diarrhea, constipation, melena. : Denies dysuria, frequency, incontinence, hematuria, urinary retention. MUSCULOSKELETAL: denies weakness, joint pain, or bony pain SKIN: Denies rash, skin lesions, or other NEUROLOGIC: Denies weakness, headache, numbness, change in speech, confusion, seizures, incoordination. PSYCHIATRIC: see HPI 12 point review of systems is negative except for those stated above Patient History Medical History Ankle pain (~2004) Constipation Excessive daytime sleepiness Foot pain (~2004) Insomnia, psychophysiological Obesity (BMI 30-39.9) Obstructive sleep apnea, adult Snoring Vertigo Surgical History Anesthesia History of cholecystectomy (~2018) Family History Mother Loud snoring Depression Anxiety Family/Other Loud snoring Depression Anxiety Social History Smoking Status: Never smoker Smoking Status: Never smoker alcohol intake frequency: 0-2 drinks per day Substance Use Type: does not use Exam Narrative Exam Narrative: GENERAL: [40] year old patient appears stated age. Well-developed patient, in mild distress. Flat affect, good eye contact and interaction, good insight HEAD: Atraumatic. Normocephalic. EYES: Pupils equal round and reactive. Extraocular motions intact. No scleral icterus. No injection or drainage. ENT: Nose without bleeding, purulent drainage. Throat without erythema, tonsillar hypertrophy or exudate. Airway patent. NECK: Trachea midline. Non tender CARDIOVASCULAR: Regular rate and rhythm without murmurs, gallops, or rubs. RESPIRATORY: Clear to auscultation. Breath sounds equal bilaterally. No wheezes, rales, or rhonchi. GASTROINTESTINAL: Abdomen soft, non-tender, nondistended. EXTREMITIES: No edema or joint tenderness. BACK: Nontender without deformity or crepitance. No flank tenderness. NEURO: AOx3. SKIN: No rash or erythema of visible areas Initial Vital Signs Initial Vital Signs: Vital Signs Temperature 97.9 F 09/16/20 15:27 Pulse Rate 96 H 09/16/20 15:27 Respiratory Rate 16 09/16/20 15:27 Blood Pressure 150/99 H 09/16/20 15:27 Pulse Oximetry 97 09/16/20 15:27 Course Orders Ordered: ED Orders 09/16/20 15:33 Acetaminophen Stat COVID19 -Nasal swab/Pre-Proc Stat Complete Blood Count AUTO DIFF Stat Comprehensive Metabolic Panel Stat Ethanol (ETOH) Stat Free T4, Direct Thyroxine Stat Salicylate Stat Thyroid Stimulating Hormone Stat 09/16/20 16:00 Consult to [facility] - Emergency Management Consultant Stat 09/16/20 17:20 Urine Drug Screen, Rapid Stat Reevaluation(s) Reevaluation #1: Patient has had extensive interaction with [facility] and we sure the opinion that he is able to contract for safety. He is given a list of contacts for psychiatrist. He denies any active suicidal or homicidal ideation. He understands he can come back for any worsening or persistent symptoms. He is given return precautions and questions answered to his apparent satisfaction Vital Signs Vital signs: Vital Signs - 8 hr 09/16/20 15:27 Temperature 97.9 F Pulse Rate 96 H Respiratory Rate 16 Blood Pressure 150/99 H Pulse Oximetry 97 MDM - Psych Lab Data Result diagrams: 09/16/20 15:33 09/16/20 15:33 Labs: Lab Results 09/16/20 09/16/20 09/16/20 Range/Units 15:33 15:33 15:33 WBC 10.4 (4.5-11.0) X10^3/uL RBC 5.64 (4.5-5.9) X10^6/uL Hgb 16.4 (13.5-17.5) g/dL Hct 47.6 (41-53) % MCV 84.5 (80-100) fL MCH 29.1 (26-34) PG MCHC 34.4 (30-36) % RDW 12.9 (11.6-14.8) % Plt Count 226 (150-400) X10^3/uL Neut % (Auto) 70.9 (50-75) % Lymph % (Auto) 21.8 L (25-40) % [place] % (Auto) 5.1 (3-14) % Eos % (Auto) 1.4 L (2-4) % Baso % (Auto) 0.8 (0-2) % Neut # (Auto) 7400 H (7143-9115) /uL Lymph # (Auto) 2300 (4271-4192) /uL [place] # (Auto) 500 (0-900) /uL Eos # (Auto) 100 (0-450) /uL Baso # (Auto) 100 (0-100) /uL Sodium 141 (137-145) mmol/L Potassium 3.9 (3.4-5.1) mmol/L Chloride 105 (98-107) mmol/L Carbon Dioxide 28 (22-32) mmol/L BUN 16 (9-20) mg/dL Creatinine 1.07 (0.66-1.25) mg/dL Estimated GFR > 60.0 (>60) mL/min BUN/Creatinine Ratio 15.0 (6-22) Glucose 114 H (70-100) mg/dL Calcium 9.9 (8.4-10.2) mg/dL Total Bilirubin 2.0 H (0.2-1.3) mg/dL AST 32 (17-59) IU/L ALT 46 (<50) IU/L Alkaline Phosphatase 79 (38-126) U/L Total Protein 8.2 (6.3-8.2) g/dL Albumin 4.8 (3.5-5.0) g/dL Globulin 3.4 (1.7-4.1) g/dL Albumin/Globulin Ratio 1.4 (1.0-2.8) TSH 0.950 (0.47-4.68) uIU/mL Free T4 1.22 (0.78-2.19) ng/dL Salicylates < 1.0 (<20) mg/dL U Opiates 300ng/mL cut (Negative) Ur Oxycodone Screen (Negative) Urine Methadone Screen (Negative) Acetaminophen < 10 L (10-30) ug/mL Ur Barbiturates Screen (Negative) U Tricyclic Antidepress (Negative) Ur Phencyclidine Scrn (Negative) Ur Amphetamines Screen (Negative) U Methamphetamines Scrn (Negative) Ur MDMA Scrn (Ecstasy) (Negative) U Benzodiazepines Scrn (Negative) Urine Cocaine Screen (Negative) U Marijuana (THC) Screen (Negative) Ethyl Alcohol < 10 ( - 10) mg/dL SARS-CoV-2 (PCR) (Negative) 09/16/20 09/16/20 Range/Units 15:33 17:20 WBC (4.5-11.0) X10^3/uL RBC (4.5-5.9) X10^6/uL Hgb (13.5-17.5) g/dL Hct (41-53) % MCV (80-100) fL MCH (26-34) PG MCHC (30-36) % RDW (11.6-14.8) % Plt Count (150-400) X10^3/uL Neut % (Auto) (50-75) % Lymph % (Auto) (25-40) % [place] % (Auto) (3-14) % Eos % (Auto) (2-4) % Baso % (Auto) (0-2) % Neut # (Auto) (7268-3332) /uL Lymph # (Auto) (1706-6300) /uL [place] # (Auto) (0-900) /uL Eos # (Auto) (0-450) /uL Baso # (Auto) (0-100) /uL Sodium (137-145) mmol/L Potassium (3.4-5.1) mmol/L Chloride (98-107) mmol/L Carbon Dioxide (22-32) mmol/L BUN (9-20) mg/dL Creatinine (0.66-1.25) mg/dL Estimated GFR (>60) mL/min BUN/Creatinine Ratio (6-22) Glucose (70-100) mg/dL Calcium (8.4-10.2) mg/dL Total Bilirubin (0.2-1.3) mg/dL AST (17-59) IU/L ALT (<50) IU/L Alkaline Phosphatase (38-126) U/L Total Protein (6.3-8.2) g/dL Albumin (3.5-5.0) g/dL Globulin (1.7-4.1) g/dL Albumin/Globulin Ratio (1.0-2.8) TSH (0.47-4.68) uIU/mL Free T4 (0.78-2.19) ng/dL Salicylates (<20) mg/dL U Opiates 300ng/mL cut Negative (Negative) Ur Oxycodone Screen Negative (Negative) Urine Methadone Screen Negative (Negative) Acetaminophen (10-30) ug/mL Ur Barbiturates Screen Negative (Negative) U Tricyclic Antidepress Negative (Negative) Ur Phencyclidine Scrn Negative (Negative) Ur Amphetamines Screen Negative (Negative) U Methamphetamines Scrn Negative (Negative) Ur MDMA Scrn (Ecstasy) Negative (Negative) U Benzodiazepines Scrn Negative (Negative) Urine Cocaine Screen Negative (Negative) U Marijuana (THC) Screen Negative (Negative) Ethyl Alcohol ( - 10) mg/dL SARS-CoV-2 (PCR) Negative (Negative) Urine Dip Bedside Urine Glucose Negative Bedside Urine Bilirubin - Negative Bedside Urine Ketone - Negative Urine Specific [place] 1.030 Bedside Urine Occult Blood - Negative Bedside Urine pH 6.0 Bedside Urine Protein - Negative Bedside Urine Urobilinogen - Negative Bedside Urine Nitrite - Negative Bedside Urine Leukocytes - Negative Esterase Discharge Plan Departure Patient Disposition: Home Clinical Impression: Depression Qualifiers: Depression Type: major depressive disorder Major depression recurrence: recurrent Active/Remission status: currently active Major depression episode severity: moderate Qualified Code(s): F33.1 - Major depressive disorder, recurrent, moderate Instructions: DI for Depression -- Adult Activity Restrictions/Additional Instructions: *You have been diagnosed with [depression with suicidal ideation ] *What to do: *Please continue to take your regular medications as directed. [ ] New medication prescriptions sent to your pharmacy: [ ] [ ] New medication written as a paper prescription [x ] No new medications given *Please follow up with your primary care provider in 2-3 days, call for an appointment. Let them know you were seen in the Emergency Department and that we ask that you be seen in follow up. We will electronically transmit a record of today's note if your PCP is in our system *If you do not have a primary care provider please contact the [facility] Resource line at [phone]. They will ask some questions about your medical history and help get you set up with a doctor in the community. *Return to Emergency Department if you should have any new, worsening or concerning symptoms, such as [fever greater than 101 F, shaking chills, worsening pain, persistent vomiting or other bothersome symptoms] *If you feel that you are entering into mental health crisis you have multiple options 1. Return to the ER immediately 2. Call the Crisis Line at [phone] 3. Send an anonymous text by sending the word Abraham to [phone] 4. Navigate your web browser to [employer] to engage in anonymous chat with a mental health worker Prescriptions: No Action meclizine 12.5 mg tablet 12.5 mg PO TID PRN (Reason: dizziness) Qty: 30 RF: 0 sertraline [Zoloft] 100 mg tablet 150 mg PO DAILY Qty: 100 RF: 0 bupropion HCl 100 mg tablet 100 mg PO BID Qty: 100 RF: 0 Referrals: Michael Skinner MD [Primary Care Provider] -
[2020-09-16 17:48] LABS: UR Morphine/Opiate cutoff 300 Negative (Negative); Ur Creatinine Normal (Normal); Ur Specific Gravity Normal (Normal); Urine Amphetamines Negative (Negative); Urine Barbiturates Negative (Negative); Urine Benzodiazepines Negative (Negative); Urine Cocaine Negative (Negative); Urine MDMA Negative (Negative); Urine Methadone Negative (Negative); Urine Methamphetamines Negative (Negative); Urine Oxycodone Negative (Negative); Urine Phencyclidine Negative (Negative); Urine Tetrahydrocannabinol Negative (Negative); Urine Tricyclic Antidepressant Negative (Negative); Urine pH Normal (Normal)
--- NOTE | 2020-09-16 18:12 | CM.SWNOTE ---
SLAB LIFTING ENGINEER Assessment SLAB LIFTING ENGINEER - Information Coder Assessment SLAB LIFTING ENGINEER/Information Coder Assessment Time Spent with Patient Start date 09/16/20 Visit Start Time 16:00 End date 09/16/20 Visit End Time 16:35 Total time Care Management spent on 40 patient visit-in minutes Mental Health Screening Include Onset, Duration, Intensity Presenting Problem Patient presents to the ED with concern for SI with plan to jump off bridge. Patient endorses he has driven [place] a few time over the years and turned around. Patient endorses today he feels worthless and does not want to be here anymore, at breaking point. Patient endorses stress and anxiety at work Precipitating Event(s) Patient endorses his cousin by suicide a few years ago, along with the loss of aunts and uncles in a short amount of time. Patient endorses within the last year he found out his cheated on him with multiple men who he still works with. Patient Strengths Patient shows insight Current Behavioral Health Provider(s) Counselor: Grace Huston (Ph. # Include Facility, Provider, Ph. # [phone]) Psych. Hx Mental Health and Chemical Patient has hx of Depression Dependency and Anxiety Patient denies substance or ETOH abuse. Family Hx of Behavioral Abuse Patient endorses his mother cut herself/attempted suicide 10 years ago. Patient endorses suffering a lot of loss in his family. Psychiatric Hospitalizations (date(s)/ No hx location) Psychosocial information & Support Patient is 40 y/o male who Systems resides in [place] with , sister and dog. Patient endorses his family (sister, mother, & brother) as supports as well as his counselor and dog. Patient endorses he only likes coming home to his dog and can feel comfortable there . School/Work Patient works at [employer] Legal Matters - Outstanding Issues None reported Mental Status Orientation (Person/Place/Time) A/Ox4 Stated Mood anxious and depressed Affect (Congruent with Mood?) euphoric, full range, congruent with moo Thought Content - Specify/Describe Patient denies obsessions, Obsessions, Delusions, Hallucinations obsessions and hallucinations. Patient endorses paranoia regarding crowded places, and people walking behind him. Thought Processes (Ankfepb-Grlfqqny-Ptht logical Vgfnsesu-Zwazzpus-Pobqrtkjyh- Iamnkntkfbtjbt-Xbjruzk-Fnaffkaivect- Thought Blocking) Speech (Cyajhr-Ymam-Iylkymk-Rapid-Soft- normal/rapid Loud-Pressured) Motor (Rtckwo-Xyawjgxto-Ooom-Other) normal Insight (Kxor-Vbjn-Byvb/Limited) fair Judgement (Zzxz-Unwg-Yhym/Limited) fair/limited Impulse Control (Adequate-Impaired) adequate Memory (Nyqncdljr-Yobxsw-Lkmemp, intact Impaired-Intact) Concentration (Intact-Impaired) intact Attention (Intact-Impaired) intact Behavior (Appropriate-Inappropriate) appropriate Risk Assessment Suicidal Ideation (Plan) Yes Homicidal Ideation (Plan) No Comment Patient denies HI. Patient states when he gets frustrated with people he will rub his arm against rough watson. Patient endorses SI, and states he has contemplated [place]. Patient endorses plan of jumping off bridge. Patient denies current SI but states he has such thoughts weekly. Patient endorses constantly not wanting to be here. Intervention Intervention SLAB LIFTING ENGINEER meets with patient. Patient endorses SI, series of events in his life that have added to his thoughts of hopelessness and worthlessness . Patient endorses anxiety and frustration at work due to running into coworkers who were having an affair with his . Patient endorses medical issues that he wishes were a way out. Patient endorses having a breaking point. Patient endorses he informed his boss about his situation and called his insurance hotline and was advised to come to the ED. SLAB LIFTING ENGINEER discusses with patient inpatient behavioral health hospitalization. SLAB LIFTING ENGINEER provides time for patient to think about this plan. Patient provides consent for SLAB LIFTING ENGINEER to call patient's counselor. Patient later endorses he does not want to pursue inpatient hospitalization It is the opinion of this SLAB LIFTING ENGINEER that patient would benefit from inpatient behavioral health hospitalization, but patient does not meet criteria for [facility] hospitalization. It is the opinion of this SLAB LIFTING ENGINEER that patient is safe for discharge with outpatient follow up and contract for safety with friends and family . SLAB LIFTING ENGINEER reviews the above with life agent Kate who indicates agreement and understanding, SLAB LIFTING ENGINEER to review the above with ED provider Dr. Muñoz who has not yet met with patient. Plan RA Plan ED provider to meet with patient for medical clearance. SLAB LIFTING ENGINEER provides patient with list of psychiatrists that take his insurance and crisis response contacts. Patient to follow up with outpatient on 09/21/20 SLAB LIFTING ENGINEER contacts patient's counselor Grace Huston MA, [facility] (Ph. # [phone]) Grace endorses she has appt with patient on Saturday09/20/20 and they meet every other week. Grace endorses she will increase sessions. Grace endorses patient speaks slowly at baseline when SLAB LIFTING ENGINEER endorsed patient was speaking at a fast rate. Grace concurs with inpatient hospitalization being a benefit for patient but if patient is not voluntary then she concurs with the plan of psychiatry and medication for stabilization. SLAB LIFTING ENGINEER provides patient with list of psychiatrists that take patient's insurance and crisis line information. DEB Vang
[2020-09-16 18:34] VITALS: BP 134/98; PULSE 73; RESP 18; O2SAT 97
== END 2020-09-16 18:35 | disposition home or self-care (01) ==
PROVIDERS: Emergency Provider Emergency Medicine; PCP Family Medicine
DX: F33.1 Major depressive disorder, recurrent, moderate (principal); R45.851 Suicidal ideations; Z20.822 Contact with and (suspected) exposure to COVID-19
CPT/HCPCS: 80053; 80305; 80320; 80329; 81003; 84439; 84443; 85025; 87635; 99284; C9803; G0480

== ENCOUNTER 2021-03-14 09:59 | Emergency (ER) | payer OTHER, SELFPAY ==
[2021-03-14] VITALS (7 sets, daily range): BP systolic 111–165; BP diastolic 69–104; PULSE 66–87; RESP 15–28; TEMP 36.4; O2SAT 95–97
--- NOTE | 2021-03-14 10:08 | DI.RAD.S_ITS ---
PROCEDURE: XR CHEST 2V INDICATIONS: coughing up blood TECHNIQUE: 2 views of the chest were acquired. COMPARISON: [facility], CR, XR CHEST 1V, 05/08/2020, 9:41. FINDINGS: Surgical changes and devices: None. Lungs and pleura: An incomplete inspiratory result is noted, causing a crowded appearance to the lung markings. No focal infiltrates are seen. No pneumothorax or significant pleural effusions are seen. Mediastinum: Mediastinal contours are normal. Heart size is normal. Bones and chest wall: No suspicious bony abnormalities. Soft tissues appear unremarkable. IMPRESSION: Low lung volumes, without an acute abnormality seen. For this patient's presenting history of hemoptysis, please consider a dedicated chest CT with contrast for further evaluation. Dictated by: Kiran Morales M.D. on 03/14/2021 at 9:42 Approved by: Kiran Morales M.D. on 03/14/2021 at 9:43
[2021-03-14 10:50] LABS: COVID19 -Nasal RAPID Negative (Negative)
--- NOTE | 2021-03-14 10:57 | ED_ITS ---
HPI - Chest Pain General Chief Complaint: Chest Pain Stated Complaint: Coughing up blood, chest tightness/pain Time Seen by Provider: 03/14/21 10:52 Source: patient Mode of arrival: Ambulatory History of Present Illness HPI narrative: Patient is a 41-year-old male who suffers from depression and anxiety presenting today with 1 week of left-sided chest discomfort hemoptysis x1. He states he has had some chest discomfort on the left side which he describes as a dull ache it remained centered in his chest. It is worse when he takes a deep breath. He does feel it more exertion but that is because he is taking deeper breaths. It is nonradiating. Nothing makes it better or worse. He may have had some improvement with ibuprofen, but not significant. He says last night in the shower he had a significant coughing fit and then spit blood into the shower. He has had no further episodes of hemoptysis. Denies any nausea vomiting or abdominal pain. He admits to nursing staff that he is suicidal he is chronically suicidal you least for a year since his left him no suicide ideations today. Related Data Previous Rx's Medication Instructions Recorded sertraline 100 mg tablet 200 mg PO DAILY #90 tab 10/28/20 aripiprazole 10 mg tablet (Abilify) 10 mg PO BEDTIME #60 tab 11/24/20 Allergies Allergy/AdvReac Type Severity Reaction Status Date / Time amoxicillin [AMOXICILLIN] Allergy Severe throat Verified 10/28/20 09:43 swelling Review of Systems Review of Systems Narrative: GENERAL: Denies chills, fatigue, malaise, fever, sweats, travel HEENT: Denies sinus pain, ear pain, sore throat, difficulty swallowing, neck pain RESPIRATORY: See HPI CARDIOVASCULAR: See HPI GASTROINTESTINAL: Denies nausea, vomiting, abdominal pain, diarrhea, constipation, melena. : Denies dysuria, frequency, incontinence, hematuria, urinary retention, flank pain. MUSCULOSKELETAL: Denies weakness, joint pain, or bony pain SKIN: No rash, no erythema, no pruritus NEUROLOGIC: Denies weakness, dizziness, headache, numbness, change in speech, confusion PSYCHIATRIC: No concerning psychosocial issues. 12 point review of systems is negative except for those stated above and HPI Patient History Medical History (Updated 03/14/21 @ 12:51 by Pat Enriquez DO) Ankle pain (~2004) Constipation Excessive daytime sleepiness Foot pain (~2004) Insomnia, psychophysiological Obesity (BMI 30-39.9) Obstructive sleep apnea, adult Shingles Snoring Vertigo Surgical History Anesthesia History of cholecystectomy (~2017) Family History Mother Loud snoring Depression Anxiety Family/Other Loud snoring Depression Anxiety Social History Smoking Status: Never smoker Smoking Status: Never smoker alcohol intake frequency: 0-2 drinks per day Substance Use Type: does not use Exam Initial Vital Signs Initial Vital Signs: Vital Signs Temperature 97.6 F 03/14/21 10:00 Pulse Rate 87 03/14/21 10:00 Respiratory Rate 18 03/14/21 10:00 Blood Pressure 165/104 H 03/14/21 10:00 Pulse Oximetry 97 03/14/21 10:00 GENERAL: Well-appearing, well-nourished and in no acute distress. HEENT: Head atraumatic,EOMI, pupils reactive, face symmetric, moist mucous membranes CARDIOVASCULAR: Regular rate and rhythm without murmurs, rubs or gallops. RESPIRATORY: Breath sounds equal bilaterally, no wheezes rales or rhonchi. ABDOMEN: Soft, nontender. Normoactive bowel sounds all 4 quadrants. No guarding or rebound. EXTREMITIES: Normal range of motion, no clubbing or edema. Neurovascularly intact NEUROLOGICAL: Alert and oriented x4.Normal gait and speech. SKIN: Warm, dry, no laceration, no petechiae, no rashes or lesions. Scores HEART Score Heart Score history: Slightly Suspicious Heart Score EKG: Normal Heart Score Age: < 45 years old Heart Score risk factors: No known risk factors Heart Score troponin: < or = to normal limit Heart Score Total: 0 PERC Score Age greater than or equal to 50 years: No Heart rate greater than or equal to 100 bpm: No Room Air O2 Sat less than 95%: No Unilateral leg swelling: No Recent trauma or surgery: No Hemoptysis: Yes Prior PE or DVT: No Hormone Use: No Total PERC Score: 1 Course Orders Ordered: ED Orders 03/14/21 10:33 COVID19 -Nasal swab/Pre-Proc Stat 03/14/21 10:45 BNP [NT-proBNP (BNP-Adult 18+)] Stat Complete Blood Count AUTO DIFF Stat Comprehensive Metabolic Panel Stat D Dimer Stat Lipase Stat Magnesium Stat Troponin & CK Cardiac Panel Stat Vital Signs Vital signs: Vital Signs - 8 hr 03/14/21 11:38 03/14/21 11:39 03/14/21 12:00 Pulse Rate 73 69 68 Respiratory Rate 17 17 15 Blood Pressure 115/71 113/73 Pulse Oximetry 95 96 97 03/14/21 12:30 03/14/21 13:00 Pulse Rate 66 66 Respiratory Rate 15 16 Blood Pressure 112/69 117/73 Pulse Oximetry 97 97 MDM - Chest Pain Lab Data Result diagrams: 03/14/21 10:45 03/14/21 10:45 Labs: Lab Results 03/14/21 03/14/21 03/14/21 Range/Units 10:33 10:45 10:45 WBC 7.9 (4.5-11.0) X10^3/uL RBC 5.74 (4.5-5.9) X10^6/uL Hgb 16.8 (13.5-17.5) g/dL Hct 47.7 (41-53) % MCV 83.1 (80-100) fL MCH 29.3 (26-34) PG MCHC 35.3 (30-36) % RDW 12.9 (11.6-14.8) % Plt Count 230 (150-400) X10^3/uL Neut % (Auto) 69.1 (50-75) % Lymph % (Auto) 22.1 L (25-40) % [place] % (Auto) 5.9 (3-14) % Eos % (Auto) 2.4 (2-4) % Baso % (Auto) 0.5 (0-2) % Neut # (Auto) 5500 (7253-4471) /uL Lymph # (Auto) 1800 (3318-6128) /uL [place] # (Auto) 500 (0-900) /uL Eos # (Auto) 200 (0-450) /uL Baso # (Auto) 0 (0-100) /uL D-Dimer (<230) ng/mL Sodium 143 (137-145) mmol/L Potassium 3.9 (3.4-5.1) mmol/L Chloride 103 (98-107) mmol/L Carbon Dioxide 30 (22-32) mmol/L BUN 19 (9-20) mg/dL Creatinine 1.09 (0.66-1.25) mg/dL Estimated GFR > 60.0 (>60) mL/min BUN/Creatinine Ratio 17.4 (6-22) Glucose 105 H (70-100) mg/dL Calcium 10.1 (8.4-10.2) mg/dL Magnesium 2.1 (1.6-2.3) mg/dL Total Bilirubin 1.9 H (0.2-1.3) mg/dL AST 27 (17-59) IU/L ALT 49 (<50) IU/L Alkaline Phosphatase 88 (38-126) U/L Total Creatine Kinase 77 (55-170) U/L CK-MB (CK-2) TNP CK-MB (CK-2) Rel Index TNP Troponin I < 0.012 (0.01-0.034) ng/mL NT-Pro-B Natriuret Pep (<125) pg/mL Total Protein 8.4 H (6.3-8.2) g/dL Albumin 5.0 (3.5-5.0) g/dL Globulin 3.4 (1.7-4.1) g/dL Albumin/Globulin Ratio 1.5 (1.0-2.8) Lipase 98 (23-300) U/L SARS-CoV-2 (PCR) Negative (Negative) 03/14/21 03/14/21 Range/Units 10:45 10:45 WBC (4.5-11.0) X10^3/uL RBC (4.5-5.9) X10^6/uL Hgb (13.5-17.5) g/dL Hct (41-53) % MCV (80-100) fL MCH (26-34) PG MCHC (30-36) % RDW (11.6-14.8) % Plt Count (150-400) X10^3/uL Neut % (Auto) (50-75) % Lymph % (Auto) (25-40) % [place] % (Auto) (3-14) % Eos % (Auto) (2-4) % Baso % (Auto) (0-2) % Neut # (Auto) (7816-7550) /uL Lymph # (Auto) (9550-8465) /uL [place] # (Auto) (0-900) /uL Eos # (Auto) (0-450) /uL Baso # (Auto) (0-100) /uL D-Dimer < 200 (<230) ng/mL Sodium (137-145) mmol/L Potassium (3.4-5.1) mmol/L Chloride (98-107) mmol/L Carbon Dioxide (22-32) mmol/L BUN (9-20) mg/dL Creatinine (0.66-1.25) mg/dL Estimated GFR (>60) mL/min BUN/Creatinine Ratio (6-22) Glucose (70-100) mg/dL Calcium (8.4-10.2) mg/dL Magnesium (1.6-2.3) mg/dL Total Bilirubin (0.2-1.3) mg/dL AST (17-59) IU/L ALT (<50) IU/L Alkaline Phosphatase (38-126) U/L Total Creatine Kinase (55-170) U/L CK-MB (CK-2) CK-MB (CK-2) Rel Index Troponin I (0.01-0.034) ng/mL NT-Pro-B Natriuret Pep 27 (<125) pg/mL Total Protein (6.3-8.2) g/dL Albumin (3.5-5.0) g/dL Globulin (1.7-4.1) g/dL Albumin/Globulin Ratio (1.0-2.8) Lipase (23-300) U/L SARS-CoV-2 (PCR) (Negative) Imaging Data Chest x-ray: Radiologist's Impression: PROCEDURE:? XR CHEST 2V ? INDICATIONS:? coughing up blood ? TECHNIQUE:? 2 views of the chest were acquired.? ? COMPARISON:? [facility], CR, XR CHEST 1V, 05/08/2020, 9:41. ? FINDINGS:? ? Surgical changes and devices:? None.? ? Lungs and pleura:? An incomplete inspiratory result is noted, causing a crowded appearance to the lung markings.? No focal infiltrates are seen.? No pneumothorax or significant pleural effusions are seen. ? ? Mediastinum:? Mediastinal contours are normal.? Heart size is normal.? ? Bones and chest wall:? No suspicious bony abnormalities.? Soft tissues appear unremarkable.? IMPRESSION:? Low lung volumes, without an acute abnormality seen. ? For this patient's presenting history of hemoptysis, please consider a dedicated chest CT with contrast for further evaluation. ? ? ? Dictated by: Kiran Morales M.D. on 03/14/2021 at 9:42 ECG Data Interpretation: Normal sinus rhythm rate 81 NJ interval 158 QRS [address] changes MDM Narrative Medical decision making narrative: The patient has had multiple days of some dull left-sided chest discomfort negative EKG and negative troponin. Heart score is low. He had 1 small episode of hemoptysis after a violent coughing spell. He is found to have low PERC score and a negative D dimer unlikely to be pulmonary embolism no need for imaging at this time. BNP also very low, no other clinical evidence of congestive heart failure. He overall appears well at this time recommend outpatient follow-up. Discharge Plan Departure Patient Disposition: Home Clinical Impression: Atypical chest pain, Cough with hemoptysis Instructions: DI for Atypical Chest Pain, DI for Hemoptysis Activity Restrictions/Additional Instructions: *You have been diagnosed with atypical chest pain *What to do: At this time blood work is overall reassuring. No sign of pneumonia. He may require further heart testing such as stress test and echocardiogram *Continue to take medications as directed *Follow up with your primary care provider in 2-3 days or call [phone] *Return to ER if you should have increasing chest pain, shortness of breath, coughing up a fist full of blood or any new, worsening or concerning symptoms Prescriptions: No Action sertraline 100 mg tablet 200 mg PO DAILY Qty: 90 2RF aripiprazole [Abilify] 10 mg tablet 10 mg PO BEDTIME Qty: 60 0RF Referrals: Michael Skinner MD [Primary Care Provider] - Stand Alone Forms: Work Release Note
[2021-03-14 11:07] LABS: Alanine Aminotransferase 49 IU/L (<50); Albumin Globulin Ratio 1.5 (1.0-2.8); Alkaline Phosphatase 88 U/L (38-126); Aspartate Aminotransferase 27 IU/L (17-59); BUN Creatinine Ratio 17.4 (6-22); Bilirubin Total 1.9 mg/dL (0.2-1.3); Blood Urea Nitrogen 19 mg/dL (9-20); Calcium 10.1 mg/dL (8.4-10.2); Carbon Dioxide 30 mmol/L (22-32); Chloride 103 mmol/L (98-107); Creatine Kinase 77 U/L (55-170); Estimated Glomerular Filt Rate > 60.0 mL/min (>60); Globulin 3.4 g/dL (1.7-4.1); Glucose 105 mg/dL (70-100); HEMOLYSIS < 15 (0-50); Lipase 98 U/L (23-300); Magnesium 2.1 mg/dL (1.6-2.3); Potassium 3.9 mmol/L (3.4-5.1); Sodium 143 mmol/L (137-145); Total Protein 8.4 g/dL (6.3-8.2)
[2021-03-14 11:09] LABS: Add Manual Diff / Slide Review NO; Basophils Absolute Auto 0 /uL (0-100); Basophils Percent Auto 0.5 % (0-2); D Dimer < 200 ng/mL (<230); Eosinophils Absolute Auto 200 /uL (0-450); Eosinophils Percent Auto 2.4 % (2-4); Hematocrit 47.7 % (41-53); Hemoglobin 16.8 g/dL (13.5-17.5); Lymphocytes Absolute Auto 1800 /uL (1100-4500); Lymphocytes Percent Auto 22.1 % (25-40); Mean Corpuscular HGB Conc 35.3 % (30-36); Mean Corpuscular Hemoglobin 29.3 PG (26-34); Mean Corpuscular Volume 83.1 fL (80-100); Monocytes Absolute Auto 500 /uL (0-900); Monocytes Percent Auto 5.9 % (3-14); Neutrophils Absolute Auto 5500 /uL (1500-7000); Neutrophils Percent Auto 69.1 % (50-75); Platelet Count 230 X10^3/uL (150-400); Red Blood Cell Count 5.74 X10^6/uL (4.5-5.9); Red Cell Distribution Width 12.9 % (11.6-14.8); White Blood Cell Count 7.9 X10^3/uL (4.5-11.0)
[2021-03-14 11:18] LABS: NT-proBNP (BNP-Adult 18+) 27 pg/mL (<125)
[2021-03-14 11:21] LABS: Troponin I < 0.012 ng/mL (0.01-0.034)
== END 2021-03-14 13:15 | disposition home or self-care (01) ==
PROVIDERS: Emergency Provider Emergency Medicine; PCP Family Medicine
DX: R07.89 Other chest pain (principal); R04.2 Hemoptysis; Z20.822 Contact with and (suspected) exposure to COVID-19
CPT/HCPCS: 36415; 71046; 80053; 82550; 83690; 83735; 83880; 84484; 85025; 85379; 87635; 93005; 99283; 99284; C9803

== ENCOUNTER 2021-11-28 16:37 | Emergency (ER) | payer SELFPAY ==
[2021-11-28 16:52] VITALS: BP 141/99; PULSE 84; RESP 20; TEMP 36.8; O2SAT 98
--- NOTE | 2021-11-28 16:55 | DI.RAD.S_ITS ---
PROCEDURE: XR CHEST 1V INDICATIONS: chest pain TECHNIQUE: One view of the chest was acquired. COMPARISON: [facility], CR, XR CHEST 1V, 05/08/2020, 9:41. [facility], CR, XR CHEST 2V, 03/14/2021, 10:20. FINDINGS: Surgical changes and devices: None. Lungs and pleura: On this semiupright portable chest examination, no large pneumothorax or large pleural effusions are seen. No focal infiltrates are seen. Mediastinum: Mediastinal contours appear normal. Heart size is normal. Bones and chest wall: No suspicious bony lesions. Overlying soft tissues appear unremarkable. IMPRESSION: Portable chest within normal limits. Dictated by: Kiran Morales M.D. on 11/28/2021 at 16:18 Approved by: Kiran Morales M.D. on 11/28/2021 at 16:18
[2021-11-28 17:22] LABS: Alanine Aminotransferase 27 IU/L (<50); Albumin 4.9 g/dL (3.5-5.0); Albumin Globulin Ratio 1.4 (1.0-2.8); Alkaline Phosphatase 96 U/L (38-126); Aspartate Aminotransferase 22 IU/L (17-59); BUN Creatinine Ratio 17.1 (6-22); Bilirubin Total 1.4 mg/dL (0.2-1.3); Blood Urea Nitrogen 19 mg/dL (9-20); Calcium 9.9 mg/dL (8.4-10.2); Carbon Dioxide 31 mmol/L (22-32); Chloride 100 mmol/L (98-107); Creatine Kinase 71 U/L (55-170); Estimated Glomerular Filt Rate > 60 mL/min (>60); Globulin 3.6 g/dL (1.7-4.1); Glucose 99 mg/dL (70-100); HEMOLYSIS 20 (0-50); Lipase 88 U/L (23-300); Magnesium 2.1 mg/dL (1.6-2.3); Potassium 4.2 mmol/L (3.4-5.1); Sodium 142 mmol/L (137-145); Total Protein 8.5 g/dL (6.3-8.2)
[2021-11-28 17:25] LABS: Add Manual Diff / Slide Review NO; Basophils Absolute Auto 100 /uL (0-100); Basophils Percent Auto 0.6 % (0-2); Eosinophils Absolute Auto 200 /uL (0-450); Eosinophils Percent Auto 1.9 % (2-4); Hematocrit 48.2 % (41-53); Hemoglobin 17.2 g/dL (13.5-17.5); Lymphocytes Absolute Auto 2400 /uL (1100-4500); Lymphocytes Percent Auto 23.5 % (25-40); Mean Corpuscular HGB Conc 35.7 % (30-36); Mean Corpuscular Hemoglobin 29.5 PG (26-34); Mean Corpuscular Volume 82.7 fL (80-100); Monocytes Absolute Auto 500 /uL (0-900); Monocytes Percent Auto 5.1 % (3-14); Neutrophils Absolute Auto 6900 /uL (1500-7000); Neutrophils Percent Auto 68.9 % (50-75); Platelet Count 246 X10^3/uL (150-400); Red Blood Cell Count 5.83 X10^6/uL (4.5-5.9); Red Cell Distribution Width 13.2 % (11.6-14.8); White Blood Cell Count 10.1 X10^3/uL (4.5-11.0)
[2021-11-28 17:33] LABS: Troponin I < 0.012 ng/mL (0.01-0.034)
[2021-11-28 20:56] LABS: Troponin I < 0.012 ng/mL (0.01-0.034)
[2021-11-28 21:23] VITALS: RESP 20; O2SAT 98
--- NOTE | 2021-11-28 22:56 | ED.CHESTPAIN ---
HPI - Chest Pain General Chief Complaint: Chest Pain Stated Complaint: weakness, stabbing pain in rt shoulder Time Seen by Provider: 11/28/21 17:45 Source: patient Mode of arrival: Ambulatory History of Present Illness HPI narrative: Patient is a 41-year-old male history of anxiety depression presenting today with some chest discomfort and left shoulder pain. He says he has been feeling weak fatigued and tired over the last couple of days but he has not been sleeping very well. The today will eating like she suddenly got nauseous lost his appetite and has some chest pressure and achiness. It did go through to his left shoulder. No shortness of breath no chest pain now. He is not a smoker no family history of heart disease. It does actually kind of hurt when he moves his arm. He works at the [employer] at the [employer] He denies any diaphoresis Related Data Previous Rx's Medication Instructions Recorded sertraline 100 mg tablet 200 mg PO DAILY #90 tabs 10/28/20 aripiprazole 10 mg tablet (Abilify) 10 mg PO BEDTIME #60 tabs 11/24/20 Allergies Allergy/AdvReac Type Severity Reaction Status Date / Time amoxicillin [AMOXICILLIN] Allergy Severe throat Verified 10/28/20 09:43 swelling Review of Systems Review of Systems Narrative: GENERAL: Denies chills, fatigue, malaise, fever, sweats, travel HEENT: Denies sinus pain, ear pain, sore throat, difficulty swallowing, neck pain RESPIRATORY: See HPI CARDIOVASCULAR: See HPI GASTROINTESTINAL: Denies nausea, vomiting, abdominal pain, diarrhea, constipation, melena. : Denies dysuria, frequency, incontinence, hematuria, urinary retention, flank pain. MUSCULOSKELETAL: Denies weakness, joint pain, or bony pain SKIN: No rash, no erythema, no pruritus NEUROLOGIC: Denies weakness, dizziness, headache, numbness, change in speech, confusion PSYCHIATRIC: No concerning psychosocial issues. 12 point review of systems is negative except for those stated above and HPI Patient History Medical History Ankle pain (~2004) Constipation Excessive daytime sleepiness Foot pain (~2004) Insomnia, psychophysiological Obesity (BMI 30-39.9) Obstructive sleep apnea, adult Shingles Snoring Vertigo Surgical History Anesthesia History of cholecystectomy (~2018) Family History Mother Loud snoring Depression Anxiety Family/Other Loud snoring Depression Anxiety Social History Smoking Status: Never smoker Smoking Status: Never smoker alcohol intake frequency: 0-2 drinks per day Substance Use Type: does not use Exam Initial Vital Signs Initial Vital Signs: Vital Signs Temperature 98.3 F 11/28/21 16:52 Pulse Rate 84 11/28/21 16:52 Respiratory Rate 20 11/28/21 16:52 Blood Pressure 141/99 H 11/28/21 16:52 Pulse Oximetry 98 11/28/21 16:52 Oxygen Delivery Method 11/28/21 16:52 GENERAL: Alert pleasant 41-year-old male HEENT: Head atraumatic,EOMI, pupils reactive, face symmetric, moist mucous membranes CARDIOVASCULAR: Regular rate and rhythm without murmurs, rubs or gallops. Pain mildly reproducible with left shoulder movement RESPIRATORY: Breath sounds equal bilaterally, no wheezes rales or rhonchi. ABDOMEN: Soft, nontender. Normoactive bowel sounds all 4 quadrants. No guarding or rebound. EXTREMITIES: Normal range of motion, no clubbing or edema. Neurovascularly intact NEUROLOGICAL: Alert and oriented x4.Normal gait and speech. SKIN: Warm, dry, no laceration, no petechiae, no rashes or lesions. Scores HEART Score Heart Score history: Moderately Suspicious Heart Score EKG: Normal Heart Score Age: < 45 years old Heart Score risk factors: No known risk factors Heart Score troponin: < or = to normal limit Heart Score Total: 1 Course Orders Ordered: ED Orders 11/28/21 16:55 XR chest 1V Stat EKG-12 Lead Stat 11/28/21 17:00 Complete Blood Count AUTO DIFF Stat Comprehensive Metabolic Panel Stat Lipase Stat Magnesium Stat Troponin & CK Cardiac Panel Stat 11/28/21 20:20 Trop I [Troponin I] Stat 11/28/21 20:45 EKG-12 Lead Routine Vital Signs Vital signs: Vital Signs - 8 hr 11/28/21 16:52 11/28/21 21:23 Temperature 98.3 F Pulse Rate 84 Respiratory Rate 20 20 Blood Pressure 141/99 H Pulse Oximetry 98 98 Oxygen Delivery Method Room Air Room Air MDM - Chest Pain Lab Data Result diagrams: 11/28/21 17:00 11/28/21 17:00 Labs: Lab Results 11/28/21 11/28/21 11/28/21 Range/Units 17:00 17:00 20:20 WBC 10.1 (4.5-11.0) X10^3/uL RBC 5.83 (4.5-5.9) X10^6/uL Hgb 17.2 (13.5-17.5) g/dL Hct 48.2 (41-53) % MCV 82.7 (80-100) fL MCH 29.5 (26-34) PG MCHC 35.7 (30-36) % RDW 13.2 (11.6-14.8) % Plt Count 246 (150-400) X10^3/uL Neut % (Auto) 68.9 (50-75) % Lymph % (Auto) 23.5 L (25-40) % [place] % (Auto) 5.1 (3-14) % Eos % (Auto) 1.9 L (2-4) % Baso % (Auto) 0.6 (0-2) % Neut # (Auto) 6900 (3457-5364) /uL Lymph # (Auto) 2400 (7989-5526) /uL [place] # (Auto) 500 (0-900) /uL Eos # (Auto) 200 (0-450) /uL Baso # (Auto) 100 (0-100) /uL Sodium 142 (137-145) mmol/L Potassium 4.2 (3.4-5.1) mmol/L Chloride 100 (98-107) mmol/L Carbon Dioxide 31 (22-32) mmol/L BUN 19 (9-20) mg/dL Creatinine 1.11 (0.66-1.25) mg/dL Estimated GFR > 60 (>60) mL/min BUN/Creatinine Ratio 17.1 (6-22) Glucose 99 (70-100) mg/dL Calcium 9.9 (8.4-10.2) mg/dL Magnesium 2.1 (1.6-2.3) mg/dL Total Bilirubin 1.4 H (0.2-1.3) mg/dL AST 22 (17-59) IU/L ALT 27 (<50) IU/L Alkaline Phosphatase 96 (38-126) U/L Total Creatine Kinase 71 (55-170) U/L CK-MB (CK-2) TNP CK-MB (CK-2) Rel Index TNP Troponin I < 0.012 < 0.012 (0.01-0.034) ng/mL Total Protein 8.5 H (6.3-8.2) g/dL Albumin 4.9 (3.5-5.0) g/dL Globulin 3.6 (1.7-4.1) g/dL Albumin/Globulin Ratio 1.4 (1.0-2.8) Lipase 88 (23-300) U/L Imaging Data Chest x-ray: Radiologist's Impression: ient: Nacho Bronson MR#: [id number] : 1980 Acct:[id number] Age/Sex: 41 / M Date of Service: 11/28/21 Loc: ED Accession Number: [id number] ?? Procedure: XR chest 1V Ordering Provider: Gena Sweet D.O. PROCEDURE:? XR CHEST 1V ? INDICATIONS:? chest pain ? TECHNIQUE:? One view of the chest was acquired.? ? COMPARISON:? [facility], CR, XR CHEST 1V, 05/08/2020, 9:41.? [facility], CR, XR CHEST 2V, 03/14/2021, 10:20. ? FINDINGS:? ? Surgical changes and devices:? None.? ? Lungs and pleura:? On this semiupright portable chest examination, no large pneumothorax or large pleural effusions are seen.? No focal infiltrates are seen.? ? Mediastinum:? Mediastinal contours appear normal.? Heart size is normal.? ? Bones and chest wall:? No suspicious bony lesions.? Overlying soft tissues appear unremarkable.? ? IMPRESSION:? ? Portable chest within normal limits. ? ? ? Dictated by: Kiran Morales M.D. on 11/28/2021 at 16:18 ? ? ECG Data Interpretation: EKG 1. Normal sinus rhythm rate 89 WV interval 156 QRS [address] changes similar to previous EKG 03/14/2021 EKG 2. Normal sinus rhythm rate 78 WV 0154 QRS [address] changes no T-wave inversions similar to prior MDM Narrative Medical decision making narrative: Patient does have some concerning symptoms however he has no risk factors he has been in the emergency department for 6 hours without any recurrence of chest pain. 2 negative troponins normal EKG. He has a primary care provider whom I contacted for follow-up an outpatient stress test. I saw him in February for something similar. He may benefit from an outpatient stress test but certainly does not need to stay. Discharge Plan Departure Patient Disposition: Home Clinical Impression: Atypical chest pain Instructions: DI for Atypical Chest Pain Activity Restrictions/Additional Instructions: *You have been diagnosed with atypical chest pain *What to do: At this time please follow-up with primary care provider for stress test and echocardiogram. If your symptoms should return at any point please return to emergency department as soon as possible by ambulance *Continue to take medications as directed Aspirin 81 mg once daily *Follow up with your primary care provider in 2-3 days or call [phone] *Return to ER if you should have increasing chest pain, palpitation, shortness of breath or any new, worsening or concerning symptoms Prescriptions: No Action sertraline 100 mg tablet 200 mg PO DAILY Qty: 90 2RF aripiprazole [Abilify] 10 mg tablet 10 mg PO BEDTIME Qty: 60 0RF Referrals: Michael Skinner MD [Primary Care Provider] - Visit Report Forms: Patient Portal/API
== END 2021-11-28 23:20 | disposition home or self-care (01) ==
PROVIDERS: Emergency Medicine; Emergency Provider Emergency Medicine; PCP Family Medicine
DX: R07.89 Other chest pain (principal)
CPT/HCPCS: 36415; 71045; 80053; 82550; 83690; 83735; 84484; 85025; 93005; 93010; 99284

== ENCOUNTER 2024-12-28 11:31 | Emergency (ER) | payer OTHER, SELFPAY ==
[2024-12-28 12:08] VITALS: BP 128/88; PULSE 62; RESP 18; TEMP 35.8; O2SAT 98; BMI 39.6
--- NOTE | 2024-12-28 12:10 | DI.CT.S_ITS ---
PROCEDURE: CT ABDOMEN PELVIS W CON
[2024-12-28 12:36] LABS: Add Manual Diff / Slide Review NO; Appearance Urine UA CLEAR; Bilirubin Urine UA NEGATIVE (NEGATIVE); Color Urine UA YELLOW; Glucose Urine UA NEGATIVE (Negative); Hematocrit 46.0 % (41-53); Hemoglobin 16.3 g/dL (13.5-17.5); Ketones Urine UA TRACE (NEGATIVE); Leukocyte Esterase Urine UA NEGATIVE (NEGATIVE); Lymphocytes Absolute Auto 1300 /uL (1100-4500); Mean Corpuscular HGB Conc 35.3 % (30-36); Mean Corpuscular Hemoglobin 29.8 PG (26-34); Mean Corpuscular Volume 84.5 fL (80-100); Nitrite Urine UA NEGATIVE (Negative); Occult Blood Urine UA NEGATIVE (Negative); Platelet Count 218 X10^3/uL (150-400); Protein Urine UA TRACE (Negative); Specific Gravity Urine UA >=1.030 (1.000-1.035); Urobilinogen Urine UA 2.0 E.U./dL (0.2); pH Urine UA 5.5 (4.5-8.0)
[2024-12-28 12:40] LABS: Culture Indicated Urine Cult Not Indicated
[2024-12-28 12:52] LABS: Alanine Aminotransferase 46 IU/L (<50); Albumin 4.9 g/dL (3.5-5.0); Albumin Globulin Ratio 1.5 (1.0-2.8); Alkaline Phosphatase 93 U/L (38-126); Blood Urea Nitrogen 18 mg/dL (9-20); Calcium 9.7 mg/dL (8.4-10.2); Carbon Dioxide 28 mmol/L (22-32); Chloride 102 mmol/L (98-107); Estimated Glomerular Filt Rate > 60 mL/min (>60); Globulin 3.3 g/dL (1.7-4.1); Glucose 183 mg/dL (70-99); HEMOLYSIS < 15 (0-50); Lactate (Lactic Acid) 2.2 mmol/L (0.7-2.1); Lipase 71 U/L (23-300); Potassium 3.8 mmol/L (3.4-5.1); Sodium 142 mmol/L (137-145); Total Protein 8.2 g/dL (6.3-8.2)
[2024-12-28] MEDS: SODIUM CHLORIDE 0.9% 1,000 ML 1000 ML IV (13:40)
[2024-12-28] MEDS: KETOROLAC 30 MG/ML VIAL 15 MG IV (13:40)
[2024-12-28 14:08] VITALS: BP 131/68; PULSE 80; RESP 18; O2SAT 97
[2024-12-28 14:08] LABS: Reflexed Lactate in 2 Hours Y
[2024-12-28 15:04] LABS: Lactate 2HR (Lactic Acid Rflx) 1.6 mmol/L (0.7-2.1)
[2024-12-28 15:12] VITALS: BP 142/89; PULSE 89; RESP 16; O2SAT 99
[2024-12-28 15:38] VITALS: BP 142/89; PULSE 84; RESP 15; O2SAT 99
--- NOTE | 2024-12-29 19:14 | ED_ITS ---
HPI - Abdominal Pain
--- NOTE | 2024-12-29 19:14 | ED.ABDPAIN ---
HPI - Abdominal Pain General Chief Complaint: Abdominal Pain Stated Complaint: Left side back pain 1 day Time Seen by Provider: 12/28/24 12:10 Source: patient Mode of arrival: Ambulatory History of Present Illness HPI narrative: 44-year-old male presents to the ED with 1 day of left-sided flank pain. Patient reports that the pain was so severe that he felt like he was about to pass out. Endorses nausea, vomiting. No fever, chills, chest pain, shortness of breath. No dysuria. No history of kidney stones. Related Data Previous Rx's ?Medication ?Instructions ?Recorded ondansetron 4 mg disintegrating 4 mg PO Q8H PRN nausea and 12/28/24 tablet vomiting #14 tabs tamsulosin 0.4 mg capsule 0.4 mg PO BEDTIME #30 caps 12/28/24 tramadol 50 mg tablet 50 mg PO Q6H PRN pain #14 tabs 12/28/24 Allergies Allergy/AdvReac Type Severity Reaction Status Date / Time amoxicillin (AMOXICILLIN) Allergy Severe throat Verified 12/28/24 12:12 swelling Review of Systems Constitutional Constitutional: Denies chills, Denies fatigue, Denies fever(s), Denies frequent falls, Denies lethargy and Denies weakness Eyes Eyes: Denies change in vision, Denies eye discharge, Denies irritation and Denies loss of vision ENT Ears, Nose, Mouth, and Throat: Denies change in voice, Denies dizziness, Denies neck pain, Denies sore throat and Denies throat swelling Cardiovascular Cardiovascular: Denies chest pain, Denies irregular heart rhythm, Denies lightheadedness, Denies palpitations, Denies dyspnea, Denies dyspnea on exertion and Denies orthopnea Respiratory Respiratory: Denies cough, Denies dyspnea, Denies dyspnea on exertion and Denies wheezing Gastrointestinal Gastrointestinal: Denies abdominal pain, Denies change in bowel habits, Denies diarrhea, Denies nausea and Denies vomiting Comments: Left-sided flank pain Musculoskeletal Musculoskeletal: Denies neck pain and Denies numbness Integumentary/Breasts Skin/Breast: Denies pruritus, Denies erythema, Denies rash and Denies wounds Neurologic Neurologic: Denies behavioral changes, Denies confusion, Denies dizziness, Denies frequent falls, Denies loss of vision, Denies numbness and Denies weakness Psychiatric Psychiatric: Denies anxiety, Denies behavioral changes, Denies confusion, Denies depression, Denies homicidal ideation and Denies suicidal ideation Endocrine Endocrine: Denies fatigue, Denies flushing and Denies palpitations Hematologic/Lymphatic Hematologic/Lymphatic: Denies easy bruising Allergic/Immunologic Allergic/Immunologic: Denies urticaria, Denies throat swelling and Denies wheezing Patient History Medical History Shingles Constipation Snoring Obesity (BMI 30-39.9) Insomnia, psychophysiological Excessive daytime sleepiness Obstructive sleep apnea, adult Vertigo Foot pain (~2004) Ankle pain (~2004) Surgical History Anesthesia History of cholecystectomy (~2017) Family History Mother Loud snoring Depression Anxiety Family/Other Loud snoring Depression Anxiety Smoking Status: Never smoker alcohol intake frequency: 0-2 drinks per day Exam Narrative Exam Narrative: Const General:?cooperative, healthy appearing and comfortable [facility] Head:?normal to inspection Ears:?hearing grossly normal bilaterally Nose:?external nose normal Face and sinus:?normal facial exam and sinuses nontender Mouth:?oral mucosae normal Throat:?posterior oropharynx normal Eyes General:?appearance normal, both eyes and all related structures Neck Neck:?normal visual inspection and no lymphadenopathy noted Resp Effort & Inspection:?normal respiratory effort Auscultation:?clear to auscultation bilaterally Cardio Rate:?regular rate Rhythm:?regular rhythm GI Abdomen is soft, nondistended, nontender to palpation. Left-sided CVA tenderness. Neuro General:?patient alert, patient awake and patient oriented x3 Initial Vital Signs Initial Vital Signs: Vital Signs Temperature 96.4 F L 12/28/24 12:08 Pulse Rate 62 12/28/24 12:08 Respiratory Rate 18 12/28/24 12:08 Blood Pressure 128/88 12/28/24 12:08 Pulse Oximetry 98 12/28/24 12:08 Oxygen Delivery Method Room Air 12/28/24 12:08 Course Orders Ordered: Discontinued Medications Sodium Chloride (Normal Saline 0.9%) 1,000 mls @ 1,000 mls/hr IV BOLUS ONE Stop: 12/28/24 14:23 Last Infusion: 12/28/24 15:12 Dose: Infused Documented By: Admin: 12/28/24 13:40 Dose: 1,000 mls/hr Documented By: EB Ketorolac Tromethamine (Ketorolac 30 Mg/Ml Vial) 15 mg IV NOW ONE Stop: 12/28/24 12:51 Last Admin: 12/28/24 13:40 Dose: 15 mg Documented By: RODNEY MDM - Abdominal Pain Lab Data 12/28/24 12:25 12/28/24 12:25 Labs: Lab Results 12/28/24 12/28/24 Range/Units 12:25 14:40 WBC 9.5 (4.5-11.0) X10^3/uL RBC 5.45 (4.5-5.9) X10^6/uL Hgb 16.3 (13.5-17.5) g/dL Hct 46.0 (41-53) % MCV 84.5 (80-100) fL MCH 29.8 (26-34) PG MCHC 35.3 (30-36) % RDW 13.1 (11.6-14.8) % Plt Count 218 (150-400) X10^3/uL Neut % (Auto) 80.6 H (50-75) % Lymph % (Auto) 13.7 L (25-40) % [place] % (Auto) 4.2 (3-14) % Eos % (Auto) 1.1 L (2-4) % Baso % (Auto) 0.4 (0-2) % Neut # (Auto) 7700 H (8453-7104) /uL Lymph # (Auto) 1300 (4954-5462) /uL [place] # (Auto) 400 (0-900) /uL Eos # (Auto) 100 (0-450) /uL Baso # (Auto) 0 (0-100) /uL Sodium 142 (137-145) mmol/L Potassium 3.8 (3.4-5.1) mmol/L Chloride 102 (98-107) mmol/L Carbon Dioxide 28 (22-32) mmol/L BUN 18 (9-20) mg/dL Creatinine 1.20 (0.66-1.25) mg/dL Estimated GFR > 60 (>60) mL/min BUN/Creatinine Ratio 15.0 (6-22) Glucose 183 H (70-99) mg/dL Lactate 2.2 H 1.6 (0.7-2.1) mmol/L Calcium 9.7 (8.4-10.2) mg/dL Total Bilirubin 1.7 H (0.2-1.3) mg/dL AST 29 (17-59) IU/L ALT 46 (<50) IU/L Alkaline Phosphatase 93 (38-126) U/L Total Protein 8.2 (6.3-8.2) g/dL Albumin 4.9 (3.5-5.0) g/dL Globulin 3.3 (1.7-4.1) g/dL Albumin/Globulin Ratio 1.5 (1.0-2.8) Lipase 71 (23-300) U/L Urine Color Yellow Urine Appearance Clear Urine pH 5.5 (4.5-8.0) Ur Specific [place] >=1.030 H (1.000-1.035) Urine Protein Trace H (Negative) Urine Glucose (UA) Negative (Negative) g/dL Urine Ketones Trace H (NEGATIVE) Urine Occult Blood Negative (Negative) Urine Nitrate Negative (Negative) Urine Bilirubin Negative (NEGATIVE) Urine Urobilinogen 2.0 H (0.2) E.U./dL Ur Leukocyte Esterase Negative (NEGATIVE) Urine RBC None seen (0-5/HPF) Urine WBC None seen (0-5/HPF) Ur Squamous Epith Cells None seen (0-5/HPF) Urine Bacteria None seen (None) Ur Culture Indicated? Cult not indicated Vol Urine Centrifuged 10ml (spun) MDM Narrative Medical decision making narrative: 44-year-old male presents to the ED with 1 day of left-sided flank pain. Concern for nephrolithiasis versus UTI versus other intra-abdominal pathology versus other. Labs, UA, CT abdomen pelvis were obtained. Patient given IV fluids, ketorolac for pain. Labs were significant for an elevated lactate of 2.2. All other labs unremarkable. UA without UTI. CT abdomen pelvis with an obstructing 3 mm distal left ureteral stone resulting in mild left hydronephrosis and hydroureter. Pain was well controlled with ketorolac. Patient's lactate improved to 1.6 after IV fluids. Patient prescribed pain medication, Zofran, tamsulosin to aid in trial of passage of the stone. Recommend follow-up with Urology, PCP for further evaluation. ED return precautions discussed with patient. Patient verbalized understanding. Medical records reviewed: Yes Discharge Plan Departure Patient Disposition: Home Clinical Impression: Kidney stone Instructions: Kidney Stones -- Adult Activity Restrictions/Additional Instructions: You were evaluated in the emergency department today for left-sided flank pain. The CT scan shows an obstructing 3 mm stone on the left side. Given the size, the stone has a very high probability of passing spontaneously without any interventions. Your labs and urine were normal. You are being prescribed some pain medication for pain control and tamsulosin to aid in stone passage. You have also been prescribed Zofran for nausea, which you may take as needed. Please follow-up with your PCP as soon as possible. Return to the emergency department if you have worsening symptoms. Prescriptions: New ondansetron 4 mg tablet,disintegrating 4 mg PO Q8H PRN (Reason: nausea and vomiting) Qty: 14 0RF tramadol 50 mg tablet 50 mg PO Q6H PRN (Reason: pain) Qty: 14 0RF tamsulosin 0.4 mg capsule 0.4 mg PO BEDTIME Qty: 30 0RF Referrals: Michael Skinner MD [Primary Care Provider, Family Practice] Stand Alone Forms: Patient Portal/API
== END 2024-12-28 15:40 | disposition home or self-care (01) ==
PROVIDERS: Emergency Provider Student in an Organized Health Care Education/Training Program; PCP Family Medicine
DX: N20.0 Calculus of kidney (principal); R11.2 Nausea with vomiting, unspecified
CPT/HCPCS: 36415; 74177; 80053; 81001; 83605; 83690; 85025; 96361; 96374; 99284; J1885; J7030; Q9967